=== PATIENT | female | born 1975 | race Caucasian/White ===

== ENCOUNTER → 2016-04-17 | Outpatient (REF) | payer OTHER ==
[~2016-04-17] MED LIST: /BUSP5TA OR; /HALO5TAB OR; /MOXI40TA; /QUET25TA OR; ACET500C; ACET50TA PO; ACET65TA; ALLE25CA; ALLE25CA OR; ALLEGRA180 PO; ATARAX OR; CLEO300C; CLIN1CAP5 PO; DARV100T; DEPA500T2 OR; DOVONEX TOP; EFFE150C OR; EFFE150C PO; EFFE75CA75 OR; EFFEXOR PO; EFFEXOR XR PO; FLAG500T OR; FLAGYL PO; GABA-283 PO; HYDR50TA8 OR; HYDR50TA8 PO; IBUP200C PO; IBUP600T; KETO-28; KLON0.5T; KLON1TAB; LAMI1TAB7 PO; LORA1TAB OR; LYRI200C OR; LYRI200C PO; LYRI300C OR; METH10CO PO; NEUR100C OR; NEUR300C OR; NEUR400C OR; NEUR600T; NEUR600T OR; NEUR800T OR; NEUR800T PO; NICO21DI4 TD; NICO21DI5 TD; NICO4GUM31 PO; NICO7DIS4 TD; PAXI20TA; PERC5TAB8; PERC7.5T8; PNV-CAP5 PO; PREG100CA OR; PREG100CA PO; PREG50CA PO; PRISTIQ; REME45TA OR; REME45TA PO; SENO8.6T5 OR; SKEL800T5 OR; SOMA250T OR; THERGRAN PO; TIZA4CAP3 PO; TRAZ100T OR; TRAZ100T4 PO; TRAZ150T; TRAZ150T OR; TRAZ150T PO; TRAZ300T2 OR; TRAZ50TA OR; TRAZODONE; Theragran PO; VENL100T OR; VENL100T PO; VENL75TA2 OR; WELLTAB40 PO; XANA0.5T; XANA1TAB2; XANA1TAB2 OR; XANA2TAB2; XANA2TAB2 OR; ZANTTAB PO; ZITH250T; ZOLO100T; ZOLOFT; ZYPR5TAB
[2016-04-17 12:14] LABS: BASO % 0.4 % (0.0-1.0); EOS # 0.1 K/mm3 (0.0-0.50); EOS % 1.4 % (0.0-3.0); LARGE UNSTAINED CELL # 0.2 K/mm3 (0.0-0.4); LARGE UNSTAINED CELL % 2.3 % (0.0-4.0); LYMPH % 24.6 % (24.0-44.0); MEAN CORPUSCULAR HEMOGLOBIN 28.9 pg (27.0-33.0); MEAN CORPUSCULAR HGB CONC 33.3 g/dl (32.0-36.5); MEAN CORPUSCULAR VOLUME 86.7 fl (80.0-96.0); MONO # 0.3 K/mm3 (0.0-0.8); MONO % 4.2 % (0.0-5.0); NEUTROPHILS # 5.4 K/mm3 (1.8-7.7); NEUTROPHILS % 67.1 % (36.0-66.0); PLATELET COUNT, AUTOMATED 202 k/mm3 (150-450); RED CELL DISTRIBUTION WIDTH 13.3 % (11.5-14.5); WHITE BLOOD COUNT 8.1 K/mm3 (4.0-10.0)
[2016-04-17 12:46] LABS: ALBUMIN 3.6 GM/DL (3.2-5.2); ALBUMIN/GLOBULIN RATIO 1.06 (1.00-1.93); BILIRUBIN,DIRECT 0.1 MG/DL (0.0-0.2); BILIRUBIN,TOTAL 0.4 MG/DL (0.2-1.0)
== END ==
LOC: M SFHCPLAZ 10:29
PROVIDERS: ATTEND Internal Medicine Infectious Disease
DX: Z30.011 Encounter for initial prescription of contraceptive pills (principal); Z11.3 Encounter for screening for infections with a predominantly sexual mode of transmission; B18.2 Chronic viral hepatitis C

== ENCOUNTER 2016-04-27 20:49 | Emergency (ER) | payer OTHER ==
--- NOTE | 2016-04-27 22:12 | EDDOCDS ---
Nurse's Notes [facility] Name: Kylie Cunningham Age: 41 yrs Sex: Female : 1975 Arrival Date: 04/27/2016 Time: 20:49 Bed TR8 Private MD: THOMAS GARCIA Diagnosis: Acute serous otitis media, left ear Presentation: 04/27 20:52 Presenting complaint: Patient states: Reports of stuffy nose x 3 days. L ear plugged an rs3 hour ago. Adult Sepsis Screening: The patient does not have new or worsening altered mentation. Patient's respiratory rate is less than 22. Systolic blood pressure is greater than 100. Patient has a qSOFA score of 0- Negative Sepsis Screen. Suicide/Homicide risk assessment- the patient denies having any suicidal and/or homicidal ideations and does not present with any other emotional, behavioral or mental health complaints. Status: Patient is not a customer service sales consultant or dependent. Transition of care: patient was not received from another setting of care. 20:52 Acuity: KAHLIL Level 5 rs3 20:52 Method Of Arrival: Walkin/Carried/Asstd rs3 Triage Assessment: 20:56 General: Appears in no apparent distress. Pain: Location: lumbar area. HIV screening NA rs3 for this visit Offered previously. EENT: Reports. Historical: - Allergies: PENICILLINS (Anaphylaxis, Hives); SULFA (SULFONAMIDES) (Anaphylaxis, Hives); - Home Meds: 1. Lamictal 150 mg oral tab 1 tab once daily 2. Wellbutrin 300 Oral 1 tab daily XR variety 3. pregabalin 300 mg oral cap three times a day 4. gabapentin 800 mg oral tab four times a day 5. tizanidine 4 mg oral cap 1 cap 3 times per day 6. Suboxone 8-2 mg SL film 1 film once daily 7. clonidine HCl 0.1 mg Oral tab 1 tab 3 times per day - PMHx: Anxiety; Arthritis; Bipolar disorder; Depression; Fibromyalgia; insomnia; Myofascial Pain syndrome right shoulder; Panic Disorder; PTSD; - PSHx: cyst removed from throat; - Social history: Smoking status: Patient uses tobacco products, heavy tobacco smoker. No barriers to communication noted, The patient speaks fluent Kazakh. - Family history: No immediate family members are acutely ill. - : The pt / caregiver states he / she is not on anticoagulants. Home medication list is obtained from the patient. - Exposure Risk Screening:: None identified. Screenin:08 Screening information is obtained from the patient. Fall risk: No risks identified. kmg1 Assistance ADL's: requires no assistance with activities of daily living. Abuse/DV Screen: The patient / caregiver reports he/she is: not in a situation that causes fear, pain or injury. Nutritional screening: No deficits noted. Advance Directives: There is no active DNR order. home support is adequate. Assessment: 22:08 General: Appears in no apparent distress, comfortable, Behavior is appropriate for age, kmg1 cooperative. Pain: Location: left eye Quality of pain is described as aching, pressure. EENT: Reports pain in left ear. Vital Signs: 20:51 BP 114 / 68; Pulse 83; Resp 18; Temp 99.0; Pulse Ox 100% ; Weight 81.65 kg; Height 5 elp ft. 3 in. (160.02 cm); 20:51 Body Mass Index 31.89 (81.65 kg, 160.02 cm) el Vitals: 20:51 Log In Time: April 27, 2016 at 20:49. elp ED Course: 20:50 Patient visited by Johana Hernandez PCA. elp 20:50 THOMAS GARCIA is Private Physician. elp 20:50 Patient moved to Waiting elp 20:51 Patient visited by Johana Hernandez PCA. elp 20:51 Patient moved to Pre RCE elp 20:54 Triage Initiated rs3 21:31 Patient moved to Triage 2 ct3 21:40 [facility] btw 21:40 Nazario Reagan DO is Attending Physician. btw 21:40 Patient visited by William Heard PA. btw 21:48 THOMAS GARCIA is Referral Physician. btw 22:05 Patient moved to TR8 ct3 22:08 The patient / caregiver is instructed regarding the plan of care and ED course. kmg1 22:08 No IV's were initiated during this patient's visit. No procedures done that require kmg1 assistance. Order Results: There are currently no results for this order. Outcome: 21:49 Discharge ordered by Provider. btw 22:08 Discharge Assessment: Patient awake, alert and oriented x 3. No cognitive and/or kmg1 functional deficits noted. Patient verbalized understanding of disposition instructions. Patient awake and alert. patient administered narcotics - no. The following High Risk Discharge criteria are identified: None. Discharged to home ambulatory. Condition: stable. Discharge instructions given to patient, Instructed on discharge instructions, follow up and referral plans. Demonstrated understanding of instructions, Pt was receptive of discharge instructions/ teaching. No special radiology studies were completed. Property sent home with patient. 22:[address] [place] [facility] [place]: Cathleen Crenshaw RN RN kmg1 Narcisa Medrano RN RN rs3 William Heard PA PA btw Krupa Guerra, KEYSEATING MACHINE SET UP OPERATOR KEYSEATING MACHINE SET UP OPERATOR ct3 Johana Hernandez, KEYSEATING MACHINE SET UP OPERATOR KEYSEATING MACHINE SET UP OPERATOR elp MTDD
--- NOTE | 2016-04-27 22:12 | EDDOCDS ---
Physician Documentation [facility] Name: Kylie Cunningham Age: 41 yrs Sex: Female : 1975 Arrival Date: 04/27/2016 Time: 20:49 Bed TR8 Private MD: THOMAS GARCIA Disposition: 04/27/16 21:49 Discharged to Home/Self Care. Impression: Acute serous otitis media, left ear. - Condition is Stable. - Discharge Instructions: Serous Otitis Media. - Medication Reconciliation, Local Pharmacy Hours form. - Follow up: THOMAS GARCIA; When: Call to arrange an appointment; Reason: Further diagnostic work-up, Recheck today's complaints, Continuance of care. - Problem is new. - Symptoms are unchanged. Historical: - Allergies: PENICILLINS (Anaphylaxis, Hives); SULFA (SULFONAMIDES) (Anaphylaxis, Hives); - Home Meds: 1. Lamictal 150 mg oral tab 1 tab once daily 2. Wellbutrin 300 Oral 1 tab daily XR variety 3. pregabalin 300 mg oral cap three times a day 4. gabapentin 800 mg oral tab four times a day 5. tizanidine 4 mg oral cap 1 cap 3 times per day 6. Suboxone 8-2 mg SL film 1 film once daily 7. clonidine HCl 0.1 mg Oral tab 1 tab 3 times per day - PMHx: Anxiety; Arthritis; Bipolar disorder; Depression; Fibromyalgia; insomnia; Myofascial Pain syndrome right shoulder; Panic Disorder; PTSD; - PSHx: cyst removed from throat; - Social history: Smoking status: Patient uses tobacco products, heavy tobacco smoker. No barriers to communication noted, The patient speaks fluent Fijian. - Family history: No immediate family members are acutely ill. - : The pt / caregiver states he / she is not on anticoagulants. Home medication list is obtained from the patient. - Exposure Risk Screening:: None identified. Vital Signs: 04/27 20:51 BP 114 / 68; Pulse 83; Resp 18; Temp 99.0; Pulse Ox 100% ; Weight 81.65 kg / 180.01 elp lbs; Height 5 ft. 3 in. (160.02 cm); 20:51 Body Mass Index 31.89 (81.65 kg, 160.02 cm) elp Signatures: Cathleen Crenshaw, RN RN kmg1 Narcisa Medrano,RN RN rs3 William Heard, JAVON PA btw MTDD
--- NOTE | 2016-04-29 23:12 | EDDOCDS ---
Physician Documentation [facility] Name: Kylie Cunningham Age: 41 yrs Sex: Female : 1975 Arrival Date: 04/27/2016 Time: 20:49 Bed TR8 Private MD: THOMAS GARCIA Disposition: 04/27/16 21:49 Discharged to Home/Self Care. Impression: Acute serous otitis media, left ear. - Condition is Stable. - Discharge Instructions: Serous Otitis Media. - Medication Reconciliation, Local Pharmacy Hours form. - Follow up: THOMAS GARCIA; When: Call to arrange an appointment; Reason: Further diagnostic work-up, Recheck today's complaints, Continuance of care. - Problem is new. - Symptoms are unchanged. Historical: - Allergies: PENICILLINS (Anaphylaxis, Hives); SULFA (SULFONAMIDES) (Anaphylaxis, Hives); - Home Meds: 1. Lamictal 150 mg oral tab 1 tab once daily 2. Wellbutrin 300 Oral 1 tab daily XR variety 3. pregabalin 300 mg oral cap three times a day 4. gabapentin 800 mg oral tab four times a day 5. tizanidine 4 mg oral cap 1 cap 3 times per day 6. Suboxone 8-2 mg SL film 1 film once daily 7. clonidine HCl 0.1 mg Oral tab 1 tab 3 times per day - PMHx: Anxiety; Arthritis; Bipolar disorder; Depression; Fibromyalgia; insomnia; Myofascial Pain syndrome right shoulder; Panic Disorder; PTSD; - PSHx: cyst removed from throat; - Social history: Smoking status: Patient uses tobacco products, heavy tobacco smoker. No barriers to communication noted, The patient speaks fluent Portuguese. - Family history: No immediate family members are acutely ill. - : The pt / caregiver states he / she is not on anticoagulants. Home medication list is obtained from the patient. - Exposure Risk Screening:: None identified. Vital Signs: 04/27 20:51 BP 114 / 68; Pulse 83; Resp 18; Temp 99.0; Pulse Ox 100% ; Weight 81.65 kg / 180.01 elp lbs; Height 5 ft. 3 in. (160.02 cm); 20:51 Body Mass Index 31.89 (81.65 kg, 160.02 cm) elp MDM: 04/28 20:53 T-Sheet-- Draft Copy was scanned into [email or web address] and attached to record. klr Signatures: Cathleen Crenshaw RN RN kmg1 Narcisa Medrano RN RN rs3 William Heard PA PA btw Redder, Kathie klr The chart was reviewed and I authenticate all verbal orders and agree with the evaluation and treatment provided.Attachments: 20:53 T-Sheet-- Draft Copy klr Chart Complete MTDD
--- NOTE | 2016-04-29 23:12 | EDDOCDS ---
Nurse's Notes [facility] Name: Kylie Cunningham Age: 41 yrs Sex: Female : 1975 Arrival Date: 04/27/2016 Time: 20:49 Bed TR8 Private MD: THOMAS GARCIA Diagnosis: Acute serous otitis media, left ear Presentation: 04/27 20:52 Presenting complaint: Patient states: Reports of stuffy nose x 3 days. L ear plugged an rs3 hour ago. Adult Sepsis Screening: The patient does not have new or worsening altered mentation. Patient's respiratory rate is less than 22. Systolic blood pressure is greater than 100. Patient has a qSOFA score of 0- Negative Sepsis Screen. Suicide/Homicide risk assessment- the patient denies having any suicidal and/or homicidal ideations and does not present with any other emotional, behavioral or mental health complaints. Status: Patient is not a financial services technician or dependent. Transition of care: patient was not received from another setting of care. 20:52 Acuity: KAHLIL Level 5 rs3 20:52 Method Of Arrival: Walkin/Carried/Asstd rs3 Triage Assessment: 20:56 General: Appears in no apparent distress. Pain: Location: lumbar area. HIV screening NA rs3 for this visit Offered previously. EENT: Reports. Historical: - Allergies: PENICILLINS (Anaphylaxis, Hives); SULFA (SULFONAMIDES) (Anaphylaxis, Hives); - Home Meds: 1. Lamictal 150 mg oral tab 1 tab once daily 2. Wellbutrin 300 Oral 1 tab daily XR variety 3. pregabalin 300 mg oral cap three times a day 4. gabapentin 800 mg oral tab four times a day 5. tizanidine 4 mg oral cap 1 cap 3 times per day 6. Suboxone 8-2 mg SL film 1 film once daily 7. clonidine HCl 0.1 mg Oral tab 1 tab 3 times per day - PMHx: Anxiety; Arthritis; Bipolar disorder; Depression; Fibromyalgia; insomnia; Myofascial Pain syndrome right shoulder; Panic Disorder; PTSD; - PSHx: cyst removed from throat; - Social history: Smoking status: Patient uses tobacco products, heavy tobacco smoker. No barriers to communication noted, The patient speaks fluent Zimbabwean. - Family history: No immediate family members are acutely ill. - : The pt / caregiver states he / she is not on anticoagulants. Home medication list is obtained from the patient. - Exposure Risk Screening:: None identified. Screenin:08 Screening information is obtained from the patient. Fall risk: No risks identified. kmg1 Assistance ADL's: requires no assistance with activities of daily living. Abuse/DV Screen: The patient / caregiver reports he/she is: not in a situation that causes fear, pain or injury. Nutritional screening: No deficits noted. Advance Directives: There is no active DNR order. home support is adequate. Assessment: 22:08 General: Appears in no apparent distress, comfortable, Behavior is appropriate for age, kmg1 cooperative. Pain: Location: left eye Quality of pain is described as aching, pressure. EENT: Reports pain in left ear. Vital Signs: 20:51 BP 114 / 68; Pulse 83; Resp 18; Temp 99.0; Pulse Ox 100% ; Weight 81.65 kg; Height 5 elp ft. 3 in. (160.02 cm); 20:51 Body Mass Index 31.89 (81.65 kg, 160.02 cm) el Vitals: 20:51 Log In Time: April 27, 2016 at 20:49. elp ED Course: 20:50 Patient visited by Johana Hernandez PCA. elp 20:50 THOMAS GARCIA is Private Physician. elp 20:50 Patient moved to Waiting elp 20:51 Patient visited by Johana Hernandez PCA. elp 20:51 Patient moved to Pre RCE elp 20:54 Triage Initiated rs3 21:31 Patient moved to Triage 2 ct3 21:40 [facility]ad [facility] btw 21:40 Nazario Reagan DO is Attending Physician. btw 21:40 Patient visited by William Heard PA. btw 21:48 THOMAS GARCIA is Referral Physician. btw 22:05 Patient moved to TR8 ct3 22:08 The patient / caregiver is instructed regarding the plan of care and ED course. kmg1 22:08 No IV's were initiated during this patient's visit. No procedures done that require kmg1 assistance. 04/28 20:53 T-Sheet-- Draft Copy was scanned into [employer] and attached to record. klr Order Results: There are currently no results for this order. Outcome: 04/27 21:49 Discharge ordered by Provider. btw 22:08 Discharge Assessment: Patient awake, alert and oriented x 3. No cognitive and/or kmg1 functional deficits noted. Patient verbalized understanding of disposition instructions. Patient awake and alert. patient administered narcotics - no. The following High Risk Discharge criteria are identified: None. Discharged to home ambulatory. Condition: stable. Discharge instructions given to patient, Instructed on discharge instructions, follow up and referral plans. Demonstrated understanding of instructions, Pt was receptive of discharge instructions/ teaching. No special radiology studies were completed. Property sent home with patient. 22:11 Patient [place] the [place]. [facility] [place] Signatures: Cathleen Crenshaw, RN RN kmg1 Narcisa Medrano,RN RN rs3 William Heard, JAVON PA btw Krupa Guerra, CAREER SERVICES REPRESENTATIVE CAREER SERVICES REPRESENTATIVE ct3 Johana Hernandez, CAREER SERVICES REPRESENTATIVE CAREER SERVICES REPRESENTATIVE elp Galilea Douglas Chart Complete MTDAbelardo
--- NOTE | 2016-04-29 23:12 | EDDOCDS ---
Physician Documentation [facility] Name: Kylie Cunningham Age: 41 yrs Sex: Female : 1975 Arrival Date: 04/27/2016 Time: 20:49 Bed TR8 Private MD: THOMAS GARCIA Disposition: 04/27/16 21:49 Discharged to Home/Self Care. Impression: Acute serous otitis media, left ear. - Condition is Stable. - Discharge Instructions: Serous Otitis Media. - Medication Reconciliation, Local Pharmacy Hours form. - Follow up: THOMAS GARCIA; When: Call to arrange an appointment; Reason: Further diagnostic work-up, Recheck today's complaints, Continuance of care. - Problem is new. - Symptoms are unchanged. Historical: - Allergies: PENICILLINS (Anaphylaxis, Hives); SULFA (SULFONAMIDES) (Anaphylaxis, Hives); - Home Meds: 1. Lamictal 150 mg oral tab 1 tab once daily 2. Wellbutrin 300 Oral 1 tab daily XR variety 3. pregabalin 300 mg oral cap three times a day 4. gabapentin 800 mg oral tab four times a day 5. tizanidine 4 mg oral cap 1 cap 3 times per day 6. Suboxone 8-2 mg SL film 1 film once daily 7. clonidine HCl 0.1 mg Oral tab 1 tab 3 times per day - PMHx: Anxiety; Arthritis; Bipolar disorder; Depression; Fibromyalgia; insomnia; Myofascial Pain syndrome right shoulder; Panic Disorder; PTSD; - PSHx: cyst removed from throat; - Social history: Smoking status: Patient uses tobacco products, heavy tobacco smoker. No barriers to communication noted, The patient speaks fluent Cook Islander. - Family history: No immediate family members are acutely ill. - : The pt / caregiver states he / she is not on anticoagulants. Home medication list is obtained from the patient. - Exposure Risk Screening:: None identified. Vital Signs: 04/27 20:51 BP 114 / 68; Pulse 83; Resp 18; Temp 99.0; Pulse Ox 100% ; Weight 81.65 kg / 180.01 elp lbs; Height 5 ft. 3 in. (160.02 cm); 20:51 Body Mass Index 31.89 (81.65 kg, 160.02 cm) elp MDM: 04/28 20:53 T-Sheet-- Draft Copy was scanned into [employer] and attached to record. klr Signatures: Cathleen Crenshaw RN RN kmg1 Narcisa Medrano RN RN rs3 William Heard PA PA btw Redder, Kathie klr The chart was reviewed and I authenticate all verbal orders and agree with the evaluation and treatment provided.Attachments: 20:53 T-Sheet-- Draft Copy klr Chart Complete MTDD
== END 2016-04-27 22:11 | disposition home or self-care (01) ==
LOC: M ED 20:49
DX: H66.002 Acute suppurative otitis media without spontaneous rupture of ear drum, left ear (principal); F41.9 Anxiety disorder, unspecified; M19.90 Unspecified osteoarthritis, unspecified site; F31.9 Bipolar disorder, unspecified; M79.7 Fibromyalgia; G47.00 Insomnia, unspecified; F43.10 Post-traumatic stress disorder, unspecified; F17.200 Nicotine dependence, unspecified, uncomplicated; Z79.891 Long term (current) use of opiate analgesic; Z79.899 Other long term (current) drug therapy; Z88.0 Allergy status to penicillin; Z88.2 Allergy status to sulfonamides

== ENCOUNTER → 2016-05-06 | Outpatient (REF) | payer OTHER ==
[2016-05-06 17:52] LABS: AMPHETAMINES URINE REFLEX NEGATIVE (NEGATIVE); BARBITURATES URINE REFLEX NEGATIVE (NEGATIVE); BENZODIAZEPINES URINE REFLEX NEGATIVE (NEGATIVE); COCAINE METABOLITE URINE REFLE NEGATIVE (NEGATIVE); CONTROL LINE INT CTR LINE PRESENT; METHADONE URINE REFLEX NEGATIVE (NEGATIVE); OPIATES URINE REFLEX NEGATIVE (NEGATIVE); TRICYCLIC ANTIDEPRESS UR REFL NEGATIVE (NEGATIVE)
== END ==
LOC: M SFHCPLAZ 13:32
PROVIDERS: ATTEND Internal Medicine Infectious Disease
DX: F11.21 Opioid dependence, in remission (principal)

== ENCOUNTER → 2016-05-10 | Outpatient (REF) | payer OTHER, MEDICAID | LOC: M SFHCWAGY 13:20 | PROVIDERS: ATTEND Family Medicine | DX: Z11.3 Encounter for screening for infections with a predominantly sexual mode of transmission (principal) ==

== ENCOUNTER 2016-06-04 01:59 | Emergency (ER) | payer MEDICAID, OTHER ==
[~2016-06-04] VITALS: Ht 160 cm; Wt 79.4 kg
[2016-06-04 02:30] VITALS: BP 126/75
[2016-06-04] MEDS ORDERED: SUBO12MI SL (02:37)
[2016-06-04] MEDS ORDERED: NAPROXEN 250 MG TAB PO ONE (02:45)
[2016-06-04] MEDS ORDERED: NAPR500T PO (02:50)
== END 2016-06-04 03:07 | disposition home or self-care (01) ==
LOC: M ED 02:54
DX: S90.01XA Contusion of right ankle, initial encounter (principal); F17.210 Nicotine dependence, cigarettes, uncomplicated; W20.8XXA Other cause of strike by thrown, projected or falling object, initial encounter; Y92.89 Other specified places as the place of occurrence of the external cause; Y93.89 Activity, other specified; Y99.9 Unspecified external cause status

== ENCOUNTER → 2016-07-01 | Outpatient (REF) | payer OTHER ==
[~2016-07-01] MED LIST changes: +NAPR500T PO; +SUBO12MI SL
[2016-07-01 20:10] LABS: ALBUMIN 4.1 GM/DL (3.2-5.2); ALBUMIN/GLOBULIN RATIO 1.28 (1.00-1.93); ALKALINE PHOSPHATASE 85 U/L (45-117); ALT/SGPT 16 U/L (12-78); AST/SGOT 14 U/L (15-37); BILIRUBIN,DIRECT < 0.1 MG/DL (0.0-0.2); BILIRUBIN,TOTAL 0.2 MG/DL (0.2-1.0); TOTAL PROTEIN 7.3 GM/DL (6.4-8.2)
[2016-07-04 14:14] LABS: HEPATITIS C QUANTITATION HCV Not Detected IU/mL (.)
== END ==
LOC: M SFHCPLAZ 14:25
PROVIDERS: ATTEND Internal Medicine Infectious Disease
DX: M79.7 Fibromyalgia (principal); F41.8 Other specified anxiety disorders; F11.21 Opioid dependence, in remission; G47.00 Insomnia, unspecified; Z72.0 Tobacco use

== ENCOUNTER → 2016-07-16 | Outpatient (REF) | payer OTHER, MEDICAID | LOC: M SFHCPLAZ 15:21 | PROVIDERS: ATTEND Nurse Practitioner Family | DX: N30.01 Acute cystitis with hematuria (principal) ==

== ENCOUNTER → 2016-09-27 | Outpatient (REF) | payer OTHER ==
[~2016-09-27] MED LIST changes: +CLIN150C14 PO; -CLIN1CAP5 PO; +CLON0.3T PO; +CLON0.5T PO; +IBUP1TAB6 PO; -IBUP200C PO; +IBUP200C10 PO; +LAMO150T PO; +LYRI300C PO; +NICO10SP; +NORE0.353 PO; +PATIENT COMMENT; +SUBO8MIS SL; +TRAZ-136 PO; -TRAZ100T4 PO; +ZANA4TAB PO
== END ==
LOC: M SFHCPLAZ 13:55
PROVIDERS: ATTEND Nurse Practitioner Family
DX: R10.12 Left upper quadrant pain (principal); Z53.9 Procedure and treatment not carried out, unspecified reason

== ENCOUNTER 2016-11-21 20:49 | Observation (INO) | payer OTHER, MEDICAID ==
[~2016-11-21] VITALS: Ht 160 cm; Wt 80.9 kg
[~2016-11-21 20:49] MED LIST changes: -CLON0.3T PO; -CLON0.5T PO; -IBUP1TAB6 PO; -LAMO150T PO; -LYRI300C PO; -NICO10SP; -NORE0.353 PO; -PATIENT COMMENT; -SUBO8MIS SL; -ZANA4TAB PO
[2016-11-21] MEDS ORDERED: NS 1,000 ML IV ONE (23:30)
[2016-11-22 00:15] LABS: ABG BASE EXCESS -0.7 (-2.0-2.0); ABG HCO3 24.3 MEQ/L (22.0-26.0); ABG PARTIAL PRESSURE CO2 41.4 mmHg (35.0-45.0); ABG PARTIAL PRESSURE O2 95.2 mmHg (75.0-100.0); ABG STANDARD HCO3 23.9 MEQ/L (22.0-26.0); ABG TOTAL CO2 25.5 MEQ/L (22.0-29.0); ABG pH (ARTERIAL) 7.386 UNITS (7.350-7.450)
--- NOTE | 2016-11-22 00:30 | REPUSA ---
HISTORY: Trauma. COMPARISON: Not provided. TECHNIQUE: Multiple thin section helically-acquired axially-displayed and helically acquired coronall y displayed computed tomographic images of the face are obtained from the mandible through the fronta l sinuses, with images obtained at soft tissue and bone window. 2D reformatted images were performed. FINDINGS: Left preseptal soft tissue edema. Normal bony mineralization. No fractures. Normal orbits. Normal, clear paranasal sinuses. Normal oral and nasal cavities. Normal infratemporal fossa and deep parapharyngeal spaces with normal muscles of mastication. Normal parotid and submandibular glands. IMPRESSION: Left preseptal soft tissue edema. Thank you for your kind referral of this patient
[2016-11-22 00:34] LABS: METHADONE URINE NEGATIVE (NEGATIVE)
[2016-11-22 01:01] LABS: BASO % 0.4 % (0.0-1.0); EOS # 0.3 K/mm3 (0.0-0.50); EOS % 4.4 % (0.0-3.0); LARGE UNSTAINED CELL # 0.2 K/mm3 (0.0-0.4); LARGE UNSTAINED CELL % 2.3 % (0.0-4.0); LYMPH # 3.3 K/mm3 (1.5-4.5); LYMPH % 41.1 % (24.0-44.0); MEAN CORPUSCULAR HEMOGLOBIN 28.6 pg (27.0-33.0); MEAN CORPUSCULAR HGB CONC 33.1 g/dl (32.0-36.5); MEAN CORPUSCULAR VOLUME 86.5 fl (80.0-96.0); MONO # 0.3 K/mm3 (0.0-0.8); MONO % 4.1 % (0.0-5.0); NEUTROPHILS # 3.7 K/mm3 (1.8-7.7); NEUTROPHILS % 47.8 % (36.0-66.0); PLATELET COUNT, AUTOMATED 258 k/mm3 (150-450); WHITE BLOOD COUNT 7.6 K/mm3 (4.0-10.0)
[2016-11-22 01:28] LABS: ALBUMIN 3.9 GM/DL (3.2-5.2); ALBUMIN/GLOBULIN RATIO 1.18 (1.00-1.93); ALKALINE PHOSPHATASE 60 U/L (45-117); ALT/SGPT 38 U/L (12-78); ANION GAP 6 MEQ/L (8-16); AST/SGOT 33 U/L (15-37); BILIRUBIN,DIRECT < 0.1 MG/DL (0.0-0.2); BILIRUBIN,TOTAL 0.4 MG/DL (0.2-1.0); BLOOD UREA NITROGEN 4 MG/DL (7-18); CALCIUM LEVEL 8.5 MG/DL (8.5-10.1); CARBON DIOXIDE LEVEL 29 MEQ/L (21-32); CHLORIDE LEVEL 107 MEQ/L (98-107); CREATININE FOR GFR 0.79 MG/DL (0.55-1.02); GLOMERULAR FILTRATION RATE > 60.0 (>60); GLUCOSE, FASTING 86 MG/DL (70-105); POTASSIUM SERUM 3.6 MEQ/L (3.5-5.1); SODIUM LEVEL 142 MEQ/L (136-145); TOTAL PROTEIN 7.2 GM/DL (6.4-8.2)
[2016-11-22] MEDS ORDERED: NALOXONE INJ 2 MG/2 ML SYRINGE (J2310) IV STA (01:55)
[2016-11-22] MEDS ORDERED: NALOXONE INJ 2 MG/2 ML SYRINGE (J2310) IM STA (01:55)
[2016-11-22] MEDS ORDERED: LAMO150T PO (03:48)
[2016-11-22] MEDS ORDERED: SUBO8MIS SL ×2 (03:48→15:11)
[2016-11-22] MEDS ORDERED: IBUP1TAB6 PO (03:48)
[2016-11-22] MEDS ORDERED: ZANA4TAB PO (03:48)
[2016-11-22] MEDS ORDERED: CLON0.3T PO (03:48)
[2016-11-22] MEDS ORDERED: LYRI300C PO ×2 (03:48→15:11)
[2016-11-22] MEDS ORDERED: PATIENT COMMENT (03:50)
[2016-11-22] MEDS ORDERED: AMMONIA AROMATIC INHALANT (FLOOR STOCK) As Ordered ONE (04:20)
[2016-11-22] MEDS ORDERED: NS 1,000 ML IV SCH (05:05)
[2016-11-22] MEDS: HEPARIN SOD (PORCINE) 5000 UNITS/ML VIAL SC SCH ×2 (06:00→14:00)
[2016-11-22 06:06] VITALS: BP 106/59
[2016-11-22 07:14] LABS: BASO % 0.5 % (0.0-1.0); EOS # 0.2 K/mm3 (0.0-0.50); LARGE UNSTAINED CELL # 0.1 K/mm3 (0.0-0.4); LARGE UNSTAINED CELL % 1.5 % (0.0-4.0); LYMPH # 1.9 K/mm3 (1.5-4.5); LYMPH % 21.9 % (24.0-44.0); MEAN CORPUSCULAR HEMOGLOBIN 28.6 pg (27.0-33.0); MEAN CORPUSCULAR HGB CONC 33.3 g/dl (32.0-36.5); MONO # 0.3 K/mm3 (0.0-0.8); MONO % 4.2 % (0.0-5.0); NEUTROPHILS # 5.7 K/mm3 (1.8-7.7); NEUTROPHILS % 68.9 % (36.0-66.0); PLATELET COUNT, AUTOMATED 288 k/mm3 (150-450); RED CELL DISTRIBUTION WIDTH 13.3 % (11.5-14.5); WHITE BLOOD COUNT 8.2 K/mm3 (4.0-10.0)
[2016-11-22 07:44] VITALS: BP 95/59
[2016-11-22 07:45] VITALS: BP 146/62
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
[2016-11-22 07:50] LABS: ALBUMIN 3.3 GM/DL (3.2-5.2); ALBUMIN/GLOBULIN RATIO 1.14 (1.00-1.93); ALKALINE PHOSPHATASE 54 U/L (45-117); ALT/SGPT 30 U/L (12-78); ANION GAP 8 MEQ/L (8-16); AST/SGOT 19 U/L (15-37); BILIRUBIN,TOTAL 0.3 MG/DL (0.2-1.0); BLOOD UREA NITROGEN 3 MG/DL (7-18); CALCIUM LEVEL 8.1 MG/DL (8.5-10.1); CARBON DIOXIDE LEVEL 27 MEQ/L (21-32); CHLORIDE LEVEL 112 MEQ/L (98-107); CREATININE FOR GFR 0.66 MG/DL (0.55-1.02); GLOMERULAR FILTRATION RATE > 60.0 (>60); GLUCOSE, FASTING 95 MG/DL (70-105); MAGNESIUM LEVEL 2.2 MG/DL (1.8-2.4); POTASSIUM SERUM 3.9 MEQ/L (3.5-5.1); SODIUM LEVEL 147 MEQ/L (136-145); TOTAL PROTEIN 6.2 GM/DL (6.4-8.2)
[2016-11-22] MEDS ORDERED: NICOTINE 21MG/24HR 1 EA TRANSDERMAL TD SCH (09:00)
--- NOTE | 2016-11-22 09:24 | IPNPDOC ---
Subjective Date Seen The patient was seen on 11/22/16. Subjective Chief Complaint/HPI The patient is a 41-year-old female admitted with a reason for visit of Encephalopathy Acute. Events since last encounter patient is sleeping. snoring. No apnea. Constitutional: Denies: Chills, Fever Pulmonary: Denies: Dyspnea Gastrointestinal: Denies: Nausea, Vomiting, Abdominal Pain Objective Physical Examination General Exam: Positive: Other (sleeping, snoring, No apnea or respiratory distress. Mumbled and raised arms over head with firm tactile stimuli and loud verbal stimuli. she tried to open her eyes when I asked her to, but only opened them slightly and then fell back to sleep.) Eye Exam: Positive: Other Eye Symptoms (scleral edema of the left eye) Chest Exam: Positive: Clear to auscultation, Normal air movement Heart Exam: Positive: Rate Normal, Regular Rhythm, Normal S1, Normal S2, Negative: Murmurs, Rubs Telemetry: Positive: Bradycardia Abdomen Exam: Positive: Soft, Negative: Tenderness Extremity Exam: Negative: Edema, Swelling Skin Exam: Positive: Other skin issue (circular ecchymosis noted on the left arm proximal to the antecubital fossa) Neuro Exam: Positive: Other (unresponsive due to clinical condition) Psych Exam: Positive: Other (unresponsive) Assessment /Plan Problems (1) Encephalopathy acute Status: Acute Problem Text: Likely Suboxone OD considering response to Narcan Also recently prescribed Klonopin and taking multiple other sedating meds that are contributing to her unresponsive state Continue to monitor on telemetry continue IVF No symptomatic bradycardia thus far - monitor this per [place] control Monitor serial CPKs Patient aroused with Narcan, but sleeping now - no signs of apnea or resp distress currently, therefore will hold off on further Narcan continue sitter Plan for Psych eval and [facility] admission for presumed intentional OD once mental status normalizes (2) Facial trauma Status: Acute Problem Text: left eye with periorbital eccymosis and swelling - x-rays and Ct scan without facial or skull fracture or Subdural hematoma. (3) Narcotic dependence Status: Chronic (4) H/O intravenous drug use in remission Status: Chronic (5) Asthma Status: Chronic Response to Treatment: Stable (6) Fibromyalgia (7) Myofascial pain dysfunction syndrome (8) Hepatitis C (9) Bipolar 1 disorder, depressed (10) Panic anxiety syndrome Plan/VTE VTE Prophylaxis Ordered?: Yes (TEDs, sequentials, knee-high compression; heparin 5000 units SC every 8 hours) Plan IVF: Initiate (60 mLs per hour) Diet: Make NPO Activity: Bedrest Diagnostics: Check Labs, Repeat Labs in AM Anticipated Discharge: Home VS, I&O, 24H, Fishbone Vital Signs/I&O Vital Signs Date Time Temp Pulse Resp B/P (MAP) Pulse Ox O2 Delivery O2 Flow Rate FiO2 11/22/16 06:06 97.9 70 16 106/59 (75) 94 Room Air Laboratory Data 24H LABS Laboratory Tests 2 11/21/16 23:49: Bedside Glucose (Misc Panel) 86 11/22/16 00:06: Blood Gas Bicarbonate Standard 23.9, Arterial Blood pH 7.386, Arterial Blood Partial Pressure CO2 41.4, Arterial Blood Partial Pressure O2 95.2, Arterial Blood Total CO2 25.5, Arterial Blood HCO3 24.3, Arterial Blood Base Excess -0.7 , Arterial Blood Oxygen Saturation 97.0, Urine Amphetamines Screen NEGATIVE, Urine Benzodiazepines Screen NEGATIVE, Urine Opiates Screen NEGATIVE, Urine Methadone Screen NEGATIVE, Urine Barbiturates Screen NEGATIVE, Urine Phencyclidine Screen NEGATIVE, Urine Cocaine Metabolite Screen NEGATIVE, Urine Cannabinoids Screen NEGATIVE 11/22/16 00:50: White Blood Count 7.6, Red Blood Count 4.75, Hemoglobin 13.6, Hematocrit 41.0, Mean Corpuscular Volume 86.5, Mean Corpuscular Hemoglobin 28.6, Mean Corpuscular Hemoglobin Concent 33.1, Red Cell Distribution Width 13.0, Platelet Count 258, Neutrophils (%) (Auto) 47.8, Lymphocytes (%) (Auto) 41.1, Monocytes ( %) (Auto) 4.1, Eosinophils (%) (Auto) 4.4H, Basophils (%) (Auto) 0.4, Neutrophils # (Auto) 3.7, Lymphocytes # (Auto) 3.3, Monocytes # (Auto) 0.3, Eosinophils # (Auto) 0.3, Basophils # (Auto) 0.0, Large Unclassified Cells % 2.3 , Large Unclassified Cells # 0.2, Anion Gap 6L, Glomerular Filtration Rate > 60.0, Calcium Level 8.5, Aspartate Amino Transf (AST/SGOT) 33, Alanine Aminotransferase (ALT/SGPT) 38, Alkaline Phosphatase 60, Total Bilirubin 0.4, Direct Bilirubin < 0.1, Ammonia 30, Total Creatine Kinase 447H, Creatine Kinase MB 3.4, Creatine Kinase MB Relative Index 0.76, Troponin I < 0.02, Total Protein 7.2, Albumin 3.9, Albumin/Globulin Ratio 1.18, Thyroid Stimulating Hormone (TSH) 1.050, Salicylates Level < 1.7L, Acetaminophen Level < 2.0L, Ethyl Alcohol Level < 0.003 11/22/16 06:57: White Blood Count 8.2, Red Blood Count 4.69, Hemoglobin 13.4, Hematocrit 40.4, Mean Corpuscular Volume 86.0, Mean Corpuscular Hemoglobin 28.6, Mean Corpuscular Hemoglobin Concent 33.3, Red Cell Distribution Width 13.3, Platelet Count 288, Neutrophils (%) (Auto) 68.9H, Lymphocytes (%) (Auto) 21.9L, Monocytes (%) (Auto) 4.2, Eosinophils (%) (Auto) 3.0, Basophils (%) (Auto) 0.5, Neutrophils # (Auto) 5.7, Lymphocytes # (Auto) 1.9, Monocytes # (Auto) 0.3, Eosinophils # (Auto) 0.2, Basophils # (Auto) 0.0, Large Unclassified Cells % 1.5 , Large Unclassified Cells # 0.1, Anion Gap 8, Glomerular Filtration Rate > 60.0 , Calcium Level 8.1L, Aspartate Amino Transf (AST/SGOT) 19, Alanine Aminotransferase (ALT/SGPT) 30, Alkaline Phosphatase 54, Total Bilirubin 0.3, Total Protein 6.2L, Albumin 3.3, Albumin/Globulin Ratio 1.14, Blood Urea Nitrogen 3L, Creatinine 0.66, Sodium Level 147H, Potassium Level 3.9, Chloride Level 112H, Carbon Dioxide Level 27, Magnesium Level 2.2 CBC/BMP Laboratory Tests 11/22/16 00:50 Red Blood Count 4.75, Mean Corpuscular Volume 86.5, Mean Corpuscular Hemoglobin 28.6, Mean Corpuscular Hemoglobin Concent 33.1, Red Cell Distribution Width 13.0 , Neutrophils (%) (Auto) 47.8, Lymphocytes (%) (Auto) 41.1, Monocytes (%) (Auto ) 4.1, Eosinophils (%) (Auto) 4.4 H, Basophils (%) (Auto) 0.4, Neutrophils # ( Auto) 3.7, Lymphocytes # (Auto) 3.3, Monocytes # (Auto) 0.3, Eosinophils # (Auto ) 0.3, Basophils # (Auto) 0.0 11/22/16 06:57 Red Blood Count 4.69, Mean Corpuscular Volume 86.0, Mean Corpuscular Hemoglobin 28.6, Mean Corpuscular Hemoglobin Concent 33.3, Red Cell Distribution Width 13.3 , Neutrophils (%) (Auto) 68.9 H, Lymphocytes (%) (Auto) 21.9 L, Monocytes (%) ( Auto) 4.2, Eosinophils (%) (Auto) 3.0, Basophils (%) (Auto) 0.5, Neutrophils # ( Auto) 5.7, Lymphocytes # (Auto) 1.9, Monocytes # (Auto) 0.3, Eosinophils # (Auto ) 0.2, Basophils # (Auto) 0.0, Calcium Level 8.1 L, Aspartate Amino Transf (AST/ SGOT) 19, Alanine Aminotransferase (ALT/SGPT) 30, Alkaline Phosphatase 54, Total Bilirubin 0.3, Total Protein 6.2 L, Albumin 3.3 TWILA WHARTON PA-C Nov 22, 2016 09:24
[2016-11-22] MEDS ORDERED: NICO10SP (09:34)
[2016-11-22] MEDS ORDERED: CLON0.5T PO (09:34)
[2016-11-22] MEDS ORDERED: NORE0.353 PO (09:35)
[2016-11-22] MEDS ORDERED: ACETAMINOPHEN TAB 650MG DOSE (2X325MG) PO PRN (10:15)
--- NOTE | 2016-11-22 10:41 | ECGEPIP ---
Stationary ECG Study [facility] - ED Test Date: 2016-11-21 Pat Name: SPENCER MACDONALD Department: Room: [place] [address] Gender: F Review Consultant: génesis : 1975 Requested By: LISA Zhou Order Number: [id number] Reading MD: Susy Edwards Measurements Intervals [place] Rate: 56 P: 21 [place]: 164 QRS: 33 QRSD: 91 T: 5 QT: 457 QTc: 444 Interpretive Statements SINUS BRADYCARDIA NSTTW ABNORMALITY DECREASED RATE 01/09/15 Electronically Signed On 11-22-2016 10:41:34 EDT by Susy Edwards
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
[2016-11-22] MEDS ORDERED: PREGABALIN 100 MG CAP (LYRICA) PO ONE (15:00)
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
[2016-11-27 00:06] LABS: BUPRENORPHINE FREE SERUM None Detected ng/mL (1-10); NORBUPRENORPHINE FREE SERUM None Detected (Not Estab.)
== END 2016-11-22 16:10 | disposition home or self-care (01) ==
LOC: M ED 20:49 → M ED INP 20:50 → M ED 11-22 01:18 → M ICU 11-22 05:57
PROVIDERS: ADMIT Internal Medicine; ATTEND Family Medicine
DX: T40.601A Poisoning by unspecified narcotics, accidental (unintentional), initial encounter (principal); G93.40 Encephalopathy, unspecified; F31.9 Bipolar disorder, unspecified; J45.20 Mild intermittent asthma, uncomplicated; M79.7 Fibromyalgia; M51.36 Other intervertebral disc degeneration, lumbar region; F43.12 Post-traumatic stress disorder, chronic; F41.9 Anxiety disorder, unspecified; Z79.899 Other long term (current) drug therapy; Z88.0 Allergy status to penicillin; Z88.2 Allergy status to sulfonamides; Z88.8 Allergy status to other drugs, medicaments and biological substances; R56.9 Unspecified convulsions
CPT/HCPCS: 36415; 36600; 51701; 70450; 70486; 80053; 80307; 80320; 80329; 80346; 80348; 82140; 82550; 82553; 82803; 83735; 84443; 85025; 93000; 93041; 94760; 96360; 96361; 96372; 99285; J2310

== ENCOUNTER → 2017-01-28 | Outpatient (CLI) | payer OTHER ==
[~2017-01-28] MED LIST changes: +CLON0.3T PO; +CLON0.5T PO; +IBUP1TAB6 PO; +LAMO150T PO; +LYRI300C PO; +NICO10SP; +NORE0.353 PO; +PATIENT COMMENT; +SUBO8MIS SL; +ZANA4TAB PO
[2017-01-28 18:03] LABS: ALBUMIN 3.9 GM/DL (3.2-5.2); ALBUMIN/GLOBULIN RATIO 1.22 (1.00-1.93); ALKALINE PHOSPHATASE 58 U/L (45-117); ALT/SGPT 18 U/L (12-78); AMYLASE 26 U/L (25-115); ANION GAP 8 MEQ/L (8-16); AST/SGOT 12 U/L (7-37); BILIRUBIN,TOTAL 0.3 MG/DL (0.2-1.0); BLOOD UREA NITROGEN 6 MG/DL (7-18); CALCIUM LEVEL 8.9 MG/DL (8.5-10.1); CARBON DIOXIDE LEVEL 27 MEQ/L (21-32); CHLORIDE LEVEL 107 MEQ/L (98-107); CREATININE FOR GFR 0.73 MG/DL (0.55-1.02); GLOMERULAR FILTRATION RATE > 60.0 (>60); GLUCOSE, FASTING 116 MG/DL (70-105); SODIUM LEVEL 142 MEQ/L (136-145); TOTAL PROTEIN 7.1 GM/DL (6.4-8.2)
[2017-01-28 18:07] LABS: BASO # 0.1 10^3/uL (0.0-0.2); BASO % 0.5 % (0.0-1.0); EOS # 0.1 10^3/uL (0.0-0.50); EOS % 1.3 % (0.0-3.0); IMMATURE GRANULOCYTE % 0.2 % (0-0); LYMPH # 3.5 10^3/uL (1.5-4.5); LYMPH % 37.4 % (24.0-44.0); MEAN CORPUSCULAR HEMOGLOBIN 28.2 pg (27.0-33.0); MEAN CORPUSCULAR HGB CONC 32.5 g/dl (32.0-36.5); MEAN CORPUSCULAR VOLUME 86.8 fl (80.0-96.0); MONO # 0.4 10^3/uL (0.0-0.8); MONO % 4.1 % (0.0-5.0); NEUTROPHILS # 5.3 10^3/uL (1.8-7.7); NEUTROPHILS % 56.5 % (36.0-66.0); PLATELET COUNT, AUTOMATED 263 10^3/uL (150-450); RED CELL DISTRIBUTION WIDTH 13.7 % (11.5-14.5); WHITE BLOOD COUNT 9.3 10^3/uL (4.0-10.0)
== END ==
LOC: M LAB 16:27
PROVIDERS: ATTEND Nurse Practitioner Family
DX: R10.12 Left upper quadrant pain (principal)

== ENCOUNTER → 2017-01-28 | Outpatient (CLI) | payer OTHER ==
[2017-01-28 18:33] LABS: ALBUMIN 3.9 GM/DL (3.2-5.2); ALBUMIN/GLOBULIN RATIO 1.34 (1.00-1.93); ALKALINE PHOSPHATASE 56 U/L (45-117); ALT/SGPT 20 U/L (12-78); AST/SGOT 12 U/L (7-37); BILIRUBIN,DIRECT < 0.1 MG/DL (0.0-0.2); BILIRUBIN,TOTAL 0.2 MG/DL (0.2-1.0); TOTAL PROTEIN 6.8 GM/DL (6.4-8.2)
[2017-01-31 00:06] LABS: HEPATITIS C QUANTITATION HCV Not Detected IU/mL (.)
== END ==
LOC: M LAB 16:32
PROVIDERS: ATTEND Internal Medicine Infectious Disease
DX: B18.2 Chronic viral hepatitis C (principal)

== ENCOUNTER → 2017-02-19 | Outpatient (REF) | payer OTHER, MEDICAID | LOC: M LAB REF 16:38 | PROVIDERS: ATTEND Family Medicine Addiction Medicine | DX: G89.4 Chronic pain syndrome (principal) ==

== ENCOUNTER → 2017-02-26 | Outpatient (REF) | payer OTHER, MEDICAID | LOC: M LAB REF 12:30 | PROVIDERS: ATTEND Family Medicine Addiction Medicine | DX: F19.10 Other psychoactive substance abuse, uncomplicated (principal) ==

== ENCOUNTER → 2017-03-21 | Outpatient (REF) | payer OTHER | LOC: M LAB REF 15:00 | PROVIDERS: ATTEND Family Medicine Addiction Medicine | DX: F19.10 Other psychoactive substance abuse, uncomplicated (principal) ==

== ENCOUNTER → 2017-04-09 | Outpatient (REF) | payer OTHER | LOC: M LAB REF 04-10 12:09 | DX: F19.10 Other psychoactive substance abuse, uncomplicated (principal) ==

== ENCOUNTER → 2017-04-16 | Outpatient (REF) | payer OTHER, MEDICAID | LOC: M LAB REF 04-17 12:55 | DX: F19.10 Other psychoactive substance abuse, uncomplicated (principal) ==

== ENCOUNTER → 2017-04-30 | Outpatient (REF) | payer OTHER, MEDICAID | LOC: M LAB REF 19:15 | DX: F19.10 Other psychoactive substance abuse, uncomplicated (principal) ==

== ENCOUNTER → 2017-05-02 | Outpatient (REF) | payer OTHER, MEDICAID | LOC: M LAB REF 19:07 | DX: F19.10 Other psychoactive substance abuse, uncomplicated (principal) ==

== ENCOUNTER → 2017-05-09 | Outpatient (REF) | payer OTHER, MEDICAID | LOC: M LAB REF 19:16 | DX: F19.10 Other psychoactive substance abuse, uncomplicated (principal) ==

== ENCOUNTER → 2017-05-12 | Outpatient (CLI) | payer MEDICAID | LOC: M OUTALCOH 12:39 | DX: Z13.9 Encounter for screening, unspecified (principal); F11.20 Opioid dependence, uncomplicated; F15.20 Other stimulant dependence, uncomplicated; F13.20 Sedative, hypnotic or anxiolytic dependence, uncomplicated ==

== ENCOUNTER 2017-05-22 10:05 | Outpatient (RCR) | payer MEDICAID | END 2017-05-28 | LOC: M OUTALCOH 10:05 | DX: F11.20 Opioid dependence, uncomplicated (principal); F15.20 Other stimulant dependence, uncomplicated; F13.20 Sedative, hypnotic or anxiolytic dependence, uncomplicated; F17.200 Nicotine dependence, unspecified, uncomplicated ==

== ENCOUNTER 2017-06-02 02:01 | Emergency (ER) | payer OTHER, MEDICAID | END 2017-06-02 03:53 | disposition home or self-care (01) | LOC: M ED 02:01 | DX: F11.10 Opioid abuse, uncomplicated (principal); J45.909 Unspecified asthma, uncomplicated; K21.9 Gastro-esophageal reflux disease without esophagitis; Z79.899 Other long term (current) drug therapy; Z88.0 Allergy status to penicillin; Z88.2 Allergy status to sulfonamides; Z88.8 Allergy status to other drugs, medicaments and biological substances; F17.210 Nicotine dependence, cigarettes, uncomplicated | CPT/HCPCS: 93971 ==

== ENCOUNTER → 2017-06-27 | Outpatient (REF) | payer OTHER | LOC: M SFHCPLAZ 16:02 | DX: B18.2 Chronic viral hepatitis C (principal); N91.2 Amenorrhea, unspecified; Z53.20 Procedure and treatment not carried out because of patient's decision for unspecified reasons ==

== ENCOUNTER → 2018-02-13 | Outpatient (CLI) | payer MEDICAID | LOC: M OUTALCOH 08:41 | DX: Z13.89 Encounter for screening for other disorder (principal); F11.20 Opioid dependence, uncomplicated ==

== ENCOUNTER 2018-03-26 15:30 | Outpatient (RCR) | payer MEDICAID ==
[~2018-03-26 15:30] MED LIST changes: -ACET50TA PO; -CLON0.5T PO; +CLON0.5T8 PO; -GABA-283 PO; +GABA-845 PO; -IBUP200C10 PO; +IBUP200C25 PO; -LAMO150T PO; +LAMO150T2 PO; +MAPA500T2 PO; +NAPR-50 PO; -NAPR500T PO; -NICO21DI5 TD; +NICO21DI6 TD; +TIZA4CAP PO; -TIZA4CAP3 PO; -TRAZ-136 PO; +TRAZ-163 PO
== END 2018-03-30 ==
LOC: M OUTALCOH 15:30
PROVIDERS: ATTEND Psychiatry & Neurology Psychiatry
DX: F11.20 Opioid dependence, uncomplicated (principal); F15.20 Other stimulant dependence, uncomplicated; F13.20 Sedative, hypnotic or anxiolytic dependence, uncomplicated; F17.200 Nicotine dependence, unspecified, uncomplicated

== ENCOUNTER 2018-04-27 14:00 | Outpatient (RCR) | payer MEDICAID | END 2018-04-30 | LOC: M OUTALCOH 14:00 | PROVIDERS: ATTEND Psychiatry & Neurology Psychiatry | DX: F11.20 Opioid dependence, uncomplicated (principal); F15.20 Other stimulant dependence, uncomplicated; F13.20 Sedative, hypnotic or anxiolytic dependence, uncomplicated; F17.200 Nicotine dependence, unspecified, uncomplicated ==

== ENCOUNTER 2018-05-25 14:00 | Outpatient (RCR) | payer MEDICAID | END 2018-05-28 | LOC: M OUTALCOH 14:00 | PROVIDERS: ATTEND Psychiatry & Neurology Psychiatry | DX: F11.20 Opioid dependence, uncomplicated (principal); F15.20 Other stimulant dependence, uncomplicated; F13.20 Sedative, hypnotic or anxiolytic dependence, uncomplicated; F17.200 Nicotine dependence, unspecified, uncomplicated ==

== ENCOUNTER 2018-06-17 16:00 | Outpatient (RCR) | payer MEDICAID | END 2018-06-28 | LOC: M OUTALCOH 16:00 | PROVIDERS: ATTEND Psychiatry & Neurology Psychiatry | DX: F11.20 Opioid dependence, uncomplicated (principal); F15.20 Other stimulant dependence, uncomplicated; F13.20 Sedative, hypnotic or anxiolytic dependence, uncomplicated; F17.200 Nicotine dependence, unspecified, uncomplicated ==

== ENCOUNTER → 2018-06-24 | Outpatient (REF) | payer MEDICAID ==
[2018-06-24 18:32] LABS: APPEARANCE, URINE CLOUDY (CLEAR); BACTERIA, URINE AUTO 1+ (NEGATIVE); BILIRUBIN, URINE AUTO NEGATIVE (NEGATIVE); BLOOD, URINE BLOOD NEGATIVE (NEGATIVE); CALCIUM OXALATE CRYSTALS LARGE; COLOR, URINE YELLOW (YELLOW); GLUCOSE, URINE (UA) AUTO NEGATIVE (NEGATIVE); KETONE, URINE AUTO NEGATIVE (NEGATIVE); LEUKOCYTE ESTERASE, URINE AUTO TRACE (NEGATIVE); MUCUS, URINE SMALL (NEGATIVE); NITRITE, URINE AUTO NEGATIVE (NEGATIVE); PROTEIN, URINE AUTO NEGATIVE (NEGATIVE); RBC, URINE AUTO 1 /HPF (0-3); SQUAMOUS EPITHELIAL CELL UR AU 9 /HPF (0-6); WBC, URINE AUTO 14 /HPF (0-3)
== END ==
LOC: M LAB REF 16:44
PROVIDERS: ATTEND Physician Assistant
DX: N39.0 Urinary tract infection, site not specified (principal)

== ENCOUNTER 2018-07-22 16:00 | Outpatient (RCR) | payer MEDICAID ==
[~2018-07-22 16:00] MED LIST changes: -/HALO5TAB OR; -/MOXI40TA; -/QUET25TA OR; +AVEL1TAB2; +HALO1TAB21 OR; -NAPR-50 PO; +NAPR-837 PO; +SERO1TAB3 OR
== END 2018-07-28 ==
LOC: M OUTALCOH 16:00
PROVIDERS: ATTEND Psychiatry & Neurology Psychiatry
DX: F11.20 Opioid dependence, uncomplicated (principal); F15.20 Other stimulant dependence, uncomplicated; F13.20 Sedative, hypnotic or anxiolytic dependence, uncomplicated; F17.200 Nicotine dependence, unspecified, uncomplicated

== ENCOUNTER 2018-08-07 06:27 | Emergency (ER) | payer MEDICAID, OTHER ==
[~2018-08-07] VITALS: Ht 160 cm; Wt 72.7 kg
[2018-08-07] MEDS ORDERED: SERO1TAB2 PO (06:35)
[2018-08-07 11:32] VITALS: BP 118/70
== END 2018-08-07 11:33 | disposition home or self-care (01) ==
LOC: M ED 06:27
DX: F19.122 Other psychoactive substance abuse with intoxication with perceptual disturbances (principal); Z88.0 Allergy status to penicillin; Z88.2 Allergy status to sulfonamides; Z88.8 Allergy status to other drugs, medicaments and biological substances; Z79.899 Other long term (current) drug therapy

== ENCOUNTER 2018-08-17 14:42 | Emergency (ER) | payer OTHER ==
[~2018-08-17] VITALS: Ht 160 cm; Wt 77.3 kg
[~2018-08-17 14:42] MED LIST changes: +SERO1TAB2 PO
[2018-08-17 18:52] LABS: HEMOGLOBIN 12.9 g/dl (12.0-15.5); MEAN CORPUSCULAR HEMOGLOBIN 27.7 pg (27.0-33.0); MEAN CORPUSCULAR HGB CONC 31.5 g/dl (32.0-36.5); MEAN CORPUSCULAR VOLUME 88.2 fl (80.0-96.0); PLATELET COUNT, AUTOMATED 260 10^3/uL (150-450); RED BLOOD COUNT 4.65 10^6/uL (4.00-5.40); WHITE BLOOD COUNT 12.5 10^3/uL (4.0-10.0)
[2018-08-17 19:16] LABS: BLOOD UREA NITROGEN 9 MG/DL (7-18); CALCIUM LEVEL 8.7 MG/DL (8.5-10.1); CARBON DIOXIDE LEVEL 27 MEQ/L (21-32); CHLORIDE LEVEL 106 MEQ/L (98-107); CPK CREATINE PHOSPHOKINASE 53 U/L (26-192); CREATININE FOR GFR 0.65 MG/DL (0.55-1.30); GLOMERULAR FILTRATION RATE > 60.0 (>58); GLUCOSE, FASTING 107 MG/DL (70-100); POTASSIUM SERUM 4.1 MEQ/L (3.5-5.1); SODIUM LEVEL 139 MEQ/L (136-145)
[2018-08-17 19:25] LABS: AMPHETAMINES LEVEL URINE NEGATIVE (NEGATIVE); BARBITURATES URINE NEGATIVE (NEGATIVE); BENZODIAZEPINES URINE POSITIVE (NEGATIVE); CANNABINOIDS URINE NEGATIVE (NEGATIVE); COCAINE METABOLITE URINE NEGATIVE (NEGATIVE); METHADONE URINE NEGATIVE (NEGATIVE); OPIATES URINE NEGATIVE (NEGATIVE); PHENCYCLIDINE URINE NEGATIVE (NEGATIVE)
[2018-08-17 19:39] LABS: HCG, SERUM QUANTITATIVE 13 MIU/ML
[2018-08-17 20:24] VITALS: BP 131/64
[2018-08-17] MEDS ORDERED: IBUP-1022 PO (20:27)
== END 2018-08-17 20:34 | disposition home or self-care (01) ==
LOC: M ED 14:42
DX: S09.90XA Unspecified injury of head, initial encounter (principal); S00.83XA Contusion of other part of head, initial encounter; S11.91XA Laceration without foreign body of unspecified part of neck, initial encounter; T76.11XA Adult physical abuse, suspected, initial encounter; X58.XXXA Exposure to other specified factors, initial encounter; Y92.9 Unspecified place or not applicable; Y93.9 Activity, unspecified; Y99.9 Unspecified external cause status; M79.7 Fibromyalgia; M79.10 Myalgia, unspecified site; F19.10 Other psychoactive substance abuse, uncomplicated; K76.9 Liver disease, unspecified; Z72.0 Tobacco use; Z79.899 Other long term (current) drug therapy; Z88.0 Allergy status to penicillin; Z88.2 Allergy status to sulfonamides; Z88.8 Allergy status to other drugs, medicaments and biological substances

== ENCOUNTER 2018-08-25 15:29 | Outpatient (RCR) | payer MEDICAID ==
[~2018-08-25 15:29] MED LIST changes: +IBUP-1022 PO
== END 2018-08-28 ==
LOC: M OUTALCOH 15:29
PROVIDERS: ATTEND Psychiatry & Neurology Psychiatry
DX: F11.20 Opioid dependence, uncomplicated (principal); F15.20 Other stimulant dependence, uncomplicated; F13.20 Sedative, hypnotic or anxiolytic dependence, uncomplicated; F17.200 Nicotine dependence, unspecified, uncomplicated

== ENCOUNTER → 2018-08-28 | Outpatient (CLI) | payer OTHER ==
--- NOTE | 2018-08-28 11:34 | REP ---
FIRST TRIMESTER ULTRASOUND: Real-time sonographic evaluation of the pelvis performed utilizing transabdominal and endovaginal technique. Uterus measures 9.6 x 5.3 x 6.7 cm. There does appear to be gestational sac in the endometrial canal with good decidual reaction with a mean sac diameter of 6 mm corresponding to an estimated gestational age of 5 weeks 1 day. However no yolk sac or pole is seen. Fibroid is seen in the left lower uterine segment 1.6 x 1.1 x 1.3 cm. Right ovary is visualized measuring 3.0 x 2.2 x 2.7 cm. Paraovarian cyst measures 7.7 x 6.9 x 6.5 cm. Left ovary could not be visualized. Within the right ovary itself a cystic structure may represent a corpus luteum 1.3 x 1.2 x 1.6 cm. IMPRESSION: There appears to be a gestational sac in the endometrial canal 6 mm in diameter corresponding to an estimated gestational age of 5 weeks 1 day. No yolk sac or pole is seen. Recommend followup ultrasound in 10-14 days to document a viability. Note is also made of a large right paraovarian cyst 7.7 x 6.9 x 6.5 cm. Followup suggested. Electronically Signed by Per Olivares MD 08/28/2018 04:15 P
== END ==
LOC: M RAD 09:21
PROVIDERS: ATTEND Physician Assistant
DX: Z32.01 Encounter for pregnancy test, result positive (principal); D25.9 Leiomyoma of uterus, unspecified; N83.201 Unspecified ovarian cyst, right side

== ENCOUNTER → 2018-09-10 | Outpatient (CLI) | payer OTHER ==
--- NOTE | 2018-09-10 12:57 | REP ---
FIRST TRIMESTER OBSTETRIC SONOGRAPHY: HISTORY: Supervision of . FINDINGS: Scanning through the gravid uterus demonstrates a viable single intrauterine gestation. Embryonic pole measures 1.1 cm in crown-rump length. This corresponds with a gestational age estimate of 7 weeks 2 days. heart rate is recorded at 120 beats per minute. A small subchorionic complex fluid collection is seen superior to the gestational sac measuring 2.0 x 0.6 x 6.0 cm. There is a hypoechoic area in the lower uterine segment 1.1 cm in greatest diameter which may be a Nabothian cyst or a small fibroid. There is a 7.5 cm anechoic right ovarian cyst consistent with corpus luteum. IMPRESSION: Viable single intrauterine gestation at 7 weeks 2 days by crown-rump length. RUCHI by sonography April 27, 2019. 7.5 cm corpus luteum cyst right ovary. 2.0 x 6.0 x 0.6 cm subchorionic fluid collection noted. Electronically Signed by Jeyson Reza MD 09/10/2018 03:07 P
== END ==
LOC: M RAD 11:24
PROVIDERS: ATTEND Nurse Practitioner Family
DX: Z36.89 Encounter for other specified antenatal screening (principal); Z3A.01 Less than 8 weeks gestation of pregnancy

== ENCOUNTER → 2018-09-10 | Outpatient (CLI) | payer OTHER ==
[2018-09-10 13:58] LABS: HEMATOCRIT 39.2 % (36.0-47.0); HEMOGLOBIN 12.6 g/dl (12.0-15.5); MEAN CORPUSCULAR HEMOGLOBIN 27.3 pg (27.0-33.0); MEAN CORPUSCULAR HGB CONC 32.1 g/dl (32.0-36.5); MEAN CORPUSCULAR VOLUME 84.8 fl (80.0-96.0); PLATELET COUNT, AUTOMATED 312 10^3/uL (150-450); RED BLOOD COUNT 4.62 10^6/uL (4.00-5.40); WHITE BLOOD COUNT 9.4 10^3/uL (4.0-10.0)
[2018-09-10 14:32] LABS: ALBUMIN 3.6 GM/DL (3.2-5.2); ALT/SGPT 15 U/L (12-78); BILIRUBIN,DIRECT < 0.1 MG/DL (0.0-0.2); BILIRUBIN,TOTAL 0.2 MG/DL (0.2-1.0); BLOOD UREA NITROGEN 8 MG/DL (7-18); CALCIUM LEVEL 8.9 MG/DL (8.5-10.1); CARBON DIOXIDE LEVEL 25 MEQ/L (21-32); CHLORIDE LEVEL 106 MEQ/L (98-107); CREATININE FOR GFR 0.68 MG/DL (0.55-1.30); GLOMERULAR FILTRATION RATE > 60.0 (>58); GLUCOSE, FASTING 81 MG/DL (70-100); POTASSIUM SERUM 4.2 MEQ/L (3.5-5.1); SODIUM LEVEL 138 MEQ/L (136-145); TOTAL PROTEIN 7.6 GM/DL (6.4-8.2)
== END ==
LOC: M LAB 12:34
PROVIDERS: ATTEND Nurse Practitioner Family
DX: Z01.812 Encounter for preprocedural laboratory examination (principal)

== ENCOUNTER 2018-09-25 08:00 | Outpatient (RCR) | payer MEDICAID | END 2018-09-27 | LOC: M OUTALCOH 08:00 | PROVIDERS: ATTEND Psychiatry & Neurology Psychiatry | DX: F11.20 Opioid dependence, uncomplicated (principal); F15.20 Other stimulant dependence, uncomplicated; F13.20 Sedative, hypnotic or anxiolytic dependence, uncomplicated; F17.200 Nicotine dependence, unspecified, uncomplicated ==

== ENCOUNTER 2018-10-21 08:45 | Outpatient (RCR) | payer MEDICAID ==
[~2018-10-21 08:45] MED LIST changes: +ZANT150T40 PO; -ZANTTAB PO
== END 2018-10-28 ==
LOC: M OUTALCOH 08:45
PROVIDERS: ATTEND Psychiatry & Neurology Psychiatry
DX: F11.20 Opioid dependence, uncomplicated (principal); F13.20 Sedative, hypnotic or anxiolytic dependence, uncomplicated; F15.20 Other stimulant dependence, uncomplicated; F17.200 Nicotine dependence, unspecified, uncomplicated

== ENCOUNTER 2018-11-25 15:30 | Outpatient (RCR) | payer MEDICAID ==
[2018-11-25] MEDS ORDERED: CLEO300C2 PO (22:06)
== END 2018-11-28 ==
LOC: M OUTALCOH 15:30
PROVIDERS: ATTEND Psychiatry & Neurology Psychiatry
DX: F11.20 Opioid dependence, uncomplicated (principal); F15.20 Other stimulant dependence, uncomplicated; F13.20 Sedative, hypnotic or anxiolytic dependence, uncomplicated; F17.200 Nicotine dependence, unspecified, uncomplicated

== ENCOUNTER 2018-11-25 19:33 | Emergency (ER) | payer MEDICAID, OTHER ==
[~2018-11-25] VITALS: Ht 160 cm; Wt 87.7 kg
[~2018-11-25 19:33] MED LIST changes: +CLON0.5T2 PO; -CLON0.5T8 PO; -LAMO150T2 PO; +LAMO150T3 PO; -TRAZ-163 PO; +TRAZ-257 PO
[2018-11-25 21:04] LABS: BASO % 0.3 % (0.0-1.0); EOS # 0.3 10^3/uL (0.0-0.50); EOS % 2.6 % (0.0-3.0); HEMATOCRIT 33.7 % (36.0-47.0); LYMPH # 2.9 10^3/uL (1.5-4.5); LYMPH % 29.7 % (24.0-44.0); MEAN CORPUSCULAR HEMOGLOBIN 28.1 pg (27.0-33.0); MEAN CORPUSCULAR HGB CONC 32.6 g/dl (32.0-36.5); MEAN CORPUSCULAR VOLUME 86.2 fl (80.0-96.0); MONO # 0.5 10^3/uL (0.0-0.8); NEUTROPHILS # 6.1 10^3/uL (1.8-7.7); NEUTROPHILS % 62.1 % (36.0-66.0); PLATELET COUNT, AUTOMATED 256 10^3/uL (150-450); RED BLOOD COUNT 3.91 10^6/uL (4.00-5.40); WHITE BLOOD COUNT 9.9 10^3/uL (4.0-10.0)
[2018-11-25 21:27] LABS: ERYTHROCYTE SEDIMENTATION RATE 46 mm/hr (0-20)
[2018-11-25] MEDS ORDERED: CLEO300C2 PO (22:06)
[2018-11-25] MEDS ORDERED: CLINDAMYCIN 150 MG CAP PO ONE (22:15)
[2018-11-25 22:19] VITALS: BP 122/74
== END 2018-11-25 22:14 | disposition home or self-care (01) ==
LOC: M ED 19:33
DX: L03.211 Cellulitis of face (principal); L03.811 Cellulitis of head [any part, except face]; O99.89 Other specified diseases and conditions complicating pregnancy, childbirth and the puerperium; L03.113 Cellulitis of right upper limb; L03.114 Cellulitis of left upper limb; L03.115 Cellulitis of right lower limb; L03.116 Cellulitis of left lower limb; O99.519 Diseases of the respiratory system complicating pregnancy, unspecified trimester; O09.519 Supervision of elderly primigravida, unspecified trimester; Z79.899 Other long term (current) drug therapy; Z88.0 Allergy status to penicillin; Z88.2 Allergy status to sulfonamides; Z88.8 Allergy status to other drugs, medicaments and biological substances

== ENCOUNTER 2018-11-26 16:04 | Emergency (ER) | payer OTHER ==
[~2018-11-26] VITALS: Ht 160 cm; Wt 85.0 kg
[~2018-11-26 16:04] MED LIST changes: +CLEO300C2 PO; -CLON0.5T2 PO; +CLON0.5T8 PO; +LAMO150T2 PO; -LAMO150T3 PO; +TRAZ-163 PO; -TRAZ-257 PO
[2018-11-26 17:01] LABS: HEMATOCRIT 35.7 % (36.0-47.0); HEMOGLOBIN 11.8 g/dl (12.0-15.5); MEAN CORPUSCULAR HEMOGLOBIN 28.5 pg (27.0-33.0); MEAN CORPUSCULAR HGB CONC 33.1 g/dl (32.0-36.5); MEAN CORPUSCULAR VOLUME 86.2 fl (80.0-96.0); PLATELET COUNT, AUTOMATED 255 10^3/uL (150-450); RED BLOOD COUNT 4.14 10^6/uL (4.00-5.40); WHITE BLOOD COUNT 9.4 10^3/uL (4.0-10.0)
[2018-11-26 17:22] LABS: HCG, SERUM QUALITATIVE POSITIVE (NEGATIVE)
[2018-11-26 17:24] LABS: AMPHETAMINES LEVEL URINE NEGATIVE (NEGATIVE); BARBITURATES URINE NEGATIVE (NEGATIVE); BENZODIAZEPINES URINE NEGATIVE (NEGATIVE); CANNABINOIDS URINE NEGATIVE (NEGATIVE); COCAINE METABOLITE URINE NEGATIVE (NEGATIVE); METHADONE URINE NEGATIVE (NEGATIVE); OPIATES URINE NEGATIVE (NEGATIVE); PHENCYCLIDINE URINE NEGATIVE (NEGATIVE)
[2018-11-26 17:28] LABS: ACETAMINOPHEN LEVEL < 2.0 UG/ML (10.0-30.0); ALBUMIN 2.8 GM/DL (3.2-5.2); ALT/SGPT 17 U/L (12-78); BILIRUBIN,DIRECT < 0.1 MG/DL (0.0-0.2); BILIRUBIN,TOTAL 0.2 MG/DL (0.2-1.0); BLOOD UREA NITROGEN 4 MG/DL (7-18); CALCIUM LEVEL 8.2 MG/DL (8.5-10.1); CARBON DIOXIDE LEVEL 25 MEQ/L (21-32); CHLORIDE LEVEL 109 MEQ/L (98-107); CREATININE FOR GFR 0.53 MG/DL (0.55-1.30); ETHYL ALCOHOL (ETHANOL) < 0.003 % (0.000-0.010); GLOMERULAR FILTRATION RATE > 60.0 (>58); GLUCOSE, FASTING 70 MG/DL (70-100); POTASSIUM SERUM 3.9 MEQ/L (3.5-5.1); SALICYLATE LEVEL 1.8 MG/DL (5.0-30.0); SODIUM LEVEL 141 MEQ/L (136-145); TOTAL PROTEIN 6.4 GM/DL (6.4-8.2)
[2018-11-26] MEDS ORDERED: SIMVASTATIN 40 MG TAB PO ONE (19:30)
[2018-11-26] MEDS ORDERED: traZODone 50 MG TAB PO ONE (19:30)
[2018-11-26] MEDS ORDERED: metFORMIN (GLUCOPHAGE) 500 MG TAB PO ONE (19:30)
[2018-11-26 19:52] VITALS: BP 121/58
[2018-11-26] MEDS ORDERED: cloZAPine 100 MG TAB (S0136) PO SCH (21:00)
[2018-11-26] MEDS ORDERED: TEMAZEPAM 15 MG CAP PO SCH (21:00)
== END 2018-11-26 19:56 | disposition home or self-care (01) ==
LOC: M ED 16:04
DX: O99.342 Other mental disorders complicating pregnancy, second trimester (principal); F41.1 Generalized anxiety disorder; F32.9 Major depressive disorder, single episode, unspecified; O99.512 Diseases of the respiratory system complicating pregnancy, second trimester; J45.909 Unspecified asthma, uncomplicated; O99.112 Other diseases of the blood and blood-forming organs and certain disorders involving the immune mechanism complicating pregnancy, second trimester; B19.20 Unspecified viral hepatitis C without hepatic coma; O99.89 Other specified diseases and conditions complicating pregnancy, childbirth and the puerperium; M79.7 Fibromyalgia; M79.18 Myalgia, other site; M51.9 Unspecified thoracic, thoracolumbar and lumbosacral intervertebral disc disorder; O99.332 Smoking (tobacco) complicating pregnancy, second trimester; F17.210 Nicotine dependence, cigarettes, uncomplicated; Z88.0 Allergy status to penicillin; Z88.2 Allergy status to sulfonamides; Z88.8 Allergy status to other drugs, medicaments and biological substances; Z79.899 Other long term (current) drug therapy; Z79.2 Long term (current) use of antibiotics; Z3A.18 18 weeks gestation of pregnancy
CPT/HCPCS: 36415; 80048; 80076; 80307; 84443; 84703; 85027; 99284; G0480

== ENCOUNTER 2018-12-09 15:30 | Outpatient (RCR) | payer MEDICAID | END 2018-12-28 | LOC: M OUTALCOH 15:30 | PROVIDERS: ATTEND Psychiatry & Neurology Psychiatry | DX: F11.20 Opioid dependence, uncomplicated (principal); F15.20 Other stimulant dependence, uncomplicated; F13.20 Sedative, hypnotic or anxiolytic dependence, uncomplicated; F17.200 Nicotine dependence, unspecified, uncomplicated ==

== ENCOUNTER 2019-03-31 17:56 | Inpatient (IN) | payer MEDICAID ==
[~2019-03-31] VITALS: Ht 160 cm; Wt 90.8 kg
[~2019-03-31 17:56] MED LIST changes: +CLON0.5T2 PO; -CLON0.5T8 PO; -LAMO150T2 PO; +LAMO150T3 PO
[2019-03-31 18:10] VITALS: BP 128/59
[2019-03-31] MEDS ORDERED: LACTATED RINGER'S 1000 ML IV STA (18:43)
[2019-03-31] MEDS ORDERED: AZITHROMYCIN INJ 500 MG, VIAL MATE ADAPTER 1 EACH in D5W 250 ML IV ONE (18:45)
[2019-03-31] MEDS ORDERED: ceFAZolin SOD 2 GM in IV 1 EA IV ONE (18:45)
[2019-03-31] MEDS ORDERED: BICITRA 30ML SOLN UDC PO ONE (18:45)
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
[2019-03-31 19:19] LABS: HEMATOCRIT 32.5 % (36.0-47.0); HEMOGLOBIN 9.9 g/dl (12.0-15.5); MEAN CORPUSCULAR HEMOGLOBIN 24.5 pg (27.0-33.0); MEAN CORPUSCULAR HGB CONC 30.5 g/dl (32.0-36.5); MEAN CORPUSCULAR VOLUME 80.4 fl (80.0-96.0); PLATELET COUNT, AUTOMATED 409 10^3/uL (150-450); RED BLOOD COUNT 4.04 10^6/uL (4.00-5.40)
[2019-03-31] MEDS ORDERED: LR 1,000 ML IV SCH (19:30)
[2019-03-31 19:37] LABS: ALBUMIN 2.3 GM/DL (3.2-5.2); ALT/SGPT 32 U/L (12-78); BILIRUBIN,TOTAL 0.4 MG/DL (0.2-1.0); BLOOD UREA NITROGEN 10 MG/DL (7-18); CALCIUM LEVEL 9.5 MG/DL (8.5-10.1); CARBON DIOXIDE LEVEL 22 MEQ/L (21-32); CHLORIDE LEVEL 104 MEQ/L (98-107); CREATININE FOR GFR 0.76 MG/DL (0.55-1.30); GLOMERULAR FILTRATION RATE > 60.0 (>58); GLUCOSE, FASTING 89 MG/DL (70-100); POTASSIUM SERUM 3.8 MEQ/L (3.5-5.1); SODIUM LEVEL 137 MEQ/L (136-145); TOTAL PROTEIN 7.1 GM/DL (6.4-8.2)
[2019-03-31] MEDS ORDERED: OXYTOCIN INJ 10 UNITS/ML VIAL (J2590) As Ordered ONE ×2 (19:57→19:58)
[2019-03-31] MEDS ORDERED: MORPHINE PRES-FREE INJ 10 MG/10 ML VIAL (J2274) As Ordered ONE (20:03)
[2019-03-31] MEDS ORDERED: diphenhydrAMINE INJ 50MG/ML VIAL (J1200) As Ordered ONE (20:13)
[2019-03-31] MEDS ORDERED: diphenhydrAMINE INJ 50MG/ML VIAL (J1200) IV PRN (20:58)
[2019-03-31] MEDS ORDERED: NALBUPHINE HCL 10 MG/ML AMP (J2300) IV PRN (20:58)
[2019-03-31] MEDS ORDERED: METOCLOPRAMIDE INJ 10MG/2ML VIAL (J2765) IV PRN ×2 (20:58→22:30)
[2019-03-31] MEDS ORDERED: ONDANSETRON 4MG/2ML VIAL (J2405) IV PRN ×3 (20:58→22:30)
[2019-03-31] MEDS ORDERED: NALOXONE INJ 0.4 MG/1 ML VIAL (J2310) IV PRN ×2 (20:58)
[2019-03-31] MEDS ORDERED: diphenhydrAMINE INJ 50MG/ML VIAL (J1200) IV ONE (21:00)
[2019-03-31] MEDS ORDERED: ONDANSETRON 4MG/2ML VIAL (J2405) As Ordered ONE (21:19)
[2019-03-31] MEDS ORDERED: PHENYLephrine HCL 500 MCG/5 ML (100MCG/ML) SYRINGE (J2370) As Ordered ONE (21:19)
[2019-03-31] MEDS ORDERED: dexameTHASONE 4 MG/ML 1ML VIAL (J1100) As Ordered ONE (21:19)
[2019-03-31] MEDS ORDERED: ePHEDrine SULFATE 25 MG/5 ML(5MG/ML) SYRINGE As Ordered ONE (21:28)
[2019-03-31 21:34] LABS: CORD GAS ABE V -1.2; CORD GAS HCO3 V 24.7 MEQ/L; CORD GAS O2 SAT V 41.8 %; CORD GAS PCO2 V 45.8 mmHg; CORD GAS PH V 7.349 UNITS; CORD GAS PO2 V 19.2 mmHg; CORD GAS SBC V 22.2 MEQ/L; CORD GAS TCO2 V 26.1 MEQ/L
[2019-03-31 21:43] LABS: AMPHETAMINES URINE REFLEX NEGATIVE (NEGATIVE); BARBITURATES URINE REFLEX NEGATIVE (NEGATIVE); BENZODIAZEPINES URINE REFLEX NEGATIVE (NEGATIVE); CANNABINOIDS URINE REFLEX NEGATIVE (NEGATIVE); COCAINE METABOLITE URINE REFLE NEGATIVE (NEGATIVE); METHADONE URINE REFLEX NEGATIVE (NEGATIVE); OPIATES URINE REFLEX NEGATIVE (NEGATIVE); PHENCYCLIDINE URINE REFLEX NEGATIVE (NEGATIVE)
[2019-03-31] MEDS ORDERED: OXYTOCIN DRIP 30 UNITS in IV 1 EA IV SCH (21:57)
[2019-03-31] MEDS ORDERED: ONDANSETRON 4 MG TAB (S0181) PO PRN (22:00)
[2019-03-31] MEDS ORDERED: RHOGAM 300 MCG (1500 IU) INJ (J2790) IM SCH (22:00)
[2019-03-31] MEDS ORDERED: MEASLES,MUMPS,RUBELLA VACCINE INJ (MMR-II) (90707) SC SCH (22:00)
[2019-03-31] MEDS ORDERED: DOCUSATE SODIUM 100 MG CAP PO PRN (22:00)
[2019-03-31] MEDS ORDERED: NS 1,000 ML IV SCH (22:30)
[2019-03-31] MEDS ORDERED: KETOROLAC 30 MG/ML VIAL (J1885) IV PRN (22:30)
[2019-03-31] MEDS ORDERED: ACETAMINOPHEN *IV* 1,000 MG IV PRN ×2 (22:30)
[2019-03-31] MEDS ORDERED: KETOROLAC 30 MG/ML VIAL (J1885) IV SCH (23:00)
[2019-03-31] MEDS ORDERED: KETOROLAC 30 MG/ML VIAL (J1885) As Ordered ONE (23:03)
[2019-03-31] MEDS: LR 1,000 ML IV SCH (23:35)
[2019-03-31] MEDS ORDERED: OXYTOCIN 30 UNITS IN 0.9% NaCl 500ML IV BAG (J2590) As Ordered ONE (23:36)
[2019-04-01] VITALS (7 sets, daily range): BP systolic 102–128; BP diastolic 53–67
[2019-04-01] MEDS: LR 1,000 ML IV SCH ×2 (08:08→11:49)
[2019-04-01 08:09] LABS: HEMATOCRIT 28.5 % (36.0-47.0); HEMOGLOBIN 8.9 g/dl (12.0-15.5); MEAN CORPUSCULAR HGB CONC 31.2 g/dl (32.0-36.5); MEAN CORPUSCULAR VOLUME 83.3 fl (80.0-96.0); RED BLOOD COUNT 3.42 10^6/uL (4.00-5.40); WHITE BLOOD COUNT 15.3 10^3/uL (4.0-10.0)
--- NOTE | 2019-04-01 08:43 | RO ---
DATE OF PROCEDURE: 03/31/2019 PREPROCEDURE DIAGNOSIS: 35 and 6/7 weeks gestation, bleeding placenta previa. POSTPROCEDURE DIAGNOSIS: 35 and 6/7 weeks gestation, bleeding placenta previa. PROCEDURE: Primary low transverse section. FINDINGS: 5 # 11 oz. male infant, Apgars 8,9. Anterior placenta previa SURGEON: Dr. Moo Myrick PRODUCT ANALYST: Bart Spencer CNM ANESTHESIA: Spinal. ESTIMATED BLOOD LOSS: 800 mL. URINE OUTPUT: 150 mL. PACKED RED BLOODS: 1 unit. DESCRIPTION OF PROCEDURE: The patient was taken to the operating room where spinal anesthesia was induced. She was prepped and draped in sterile fashion in the supine position. A Brantley catheter was placed. A Pfannenstiel skin incision was made with the scalpel and carried through to the fascia. The fascia was nicked and extended. The fascia was dissected off the rectus muscles. The peritoneal cavity was entered. A bladder flap was created. A curvilinear incision was made in the lower uterine segment until clear fluid was noted. The placenta was noted to be anterior placenta previa. The placenta was moved out of the way and the vertex was delivered. The cord was doubly clamped and cut. The was handed off to the awaiting nurses. The director international was also present. The placenta was expressed. The uterus was closed with #0 Vicryl in a running locked fashion. A second imbricating layer of #0 Vicryl was placed. The uterus, fallopian tubes and ovaries appeared normal. The peritoneum was closed with #2-0 Vicryl in a running fashion. The fascia was closed with #0 Vicryl in a running fashion. The deep layer was irrigated and closed with #3-0 chromic. The skin was closed with #4-0 Monocryl subcuticular sutures. Sponge, instrument and needle counts were correct. MTDD
[2019-04-01] MEDS ORDERED: BUPRENORPHINE/NALOXONE 8-2MG SUBLINGUAL TABLET(SUBOXONE) SL SCH (09:00)
[2019-04-01] MEDS: PRENATAL VITAMINS CHEWABLE TABLET PO SCH (09:02)
[2019-04-01] MEDS: KETOROLAC 30 MG/ML VIAL (J1885) IV SCH ×3 (11:13→17:01)
[2019-04-01] MEDS ORDERED: diphenhydrAMINE 25 MG CAP PO PRN (11:45)
[2019-04-01] MEDS: NICOTINE 21MG/24HR 1 EA TRANSDERMAL TD SCH (11:49)
[2019-04-01] MEDS: CALAMINE LOTION 177 ML BTL TOP SCH ×2 (12:36→21:44)
[2019-04-01] MEDS: PREGABALIN 100 MG CAP (LYRICA) PO SCH ×2 (15:22→21:43)
[2019-04-01] MEDS: IBUPROFEN 800 MG TAB PO SCH (18:32)
[2019-04-01] MEDS: BUPRENORPHINE/NALOXONE 8-2MG SUBLINGUAL TABLET(SUBOXONE) SL SCH (21:43)
[2019-04-01] MEDS: QUEtiapine FUMARATE 100 MG TAB PO SCH (21:43)
[2019-04-02 02:33] VITALS: BP 104/52
[2019-04-02] MEDS: IBUPROFEN 800 MG TAB PO SCH ×3 (03:50→18:32)
[2019-04-02 05:44] VITALS: BP 113/55
[2019-04-02] MEDS: PRENATAL VITAMINS CHEWABLE TABLET PO SCH (08:17)
[2019-04-02] MEDS: NICOTINE 21MG/24HR 1 EA TRANSDERMAL TD SCH (08:18)
[2019-04-02] MEDS: BUPRENORPHINE/NALOXONE 8-2MG SUBLINGUAL TABLET(SUBOXONE) SL SCH ×2 (08:18→20:28)
[2019-04-02] MEDS: PREGABALIN 100 MG CAP (LYRICA) PO SCH ×3 (08:18→20:28)
[2019-04-02] MEDS: CALAMINE LOTION 177 ML BTL TOP SCH ×2 (08:19→20:34)
[2019-04-02 10:00] VITALS: BP 118/65
[2019-04-02 14:00] VITALS: BP 115/62
[2019-04-02 17:58] VITALS: BP 126/67
[2019-04-02] MEDS: QUEtiapine FUMARATE 100 MG TAB PO SCH (20:32)
[2019-04-02 22:00] VITALS: BP 121/61
[2019-04-03] MEDS: IBUPROFEN 800 MG TAB PO SCH ×2 (02:34→10:33)
[2019-04-03 06:23] VITALS: BP 126/75
[2019-04-03] MEDS: PRENATAL VITAMINS CHEWABLE TABLET PO SCH (09:05)
[2019-04-03] MEDS: BUPRENORPHINE/NALOXONE 8-2MG SUBLINGUAL TABLET(SUBOXONE) SL SCH (09:05)
[2019-04-03] MEDS: CALAMINE LOTION 177 ML BTL TOP SCH (09:07)
[2019-04-03] MEDS: NICOTINE 21MG/24HR 1 EA TRANSDERMAL TD SCH (09:07)
[2019-04-03] MEDS: PREGABALIN 100 MG CAP (LYRICA) PO SCH (10:33)
[2019-04-03] MEDS ORDERED: IBUP80TA PO (11:12)
--- NOTE | 2019-04-03 19:02 | DS.PDOC ---
Discharge Summary General Date of Admission Mar 31, 2019 at 18:41 Date of Discharge 04/03/2019 Attending Physician: JAZ ROBB MD Discharge Summary PROCEDURES PERFORMED DURING STAY: 1. Spinal anesthesia. 2. section. 3. Transfusion of 2 packed red blood cells ADMITTING DIAGNOSES: 1., Intrauterine at 35 weeks with bleeding placenta previa. DISCHARGE DIAGNOSES: 1. Intrauterine at 35 weeks with bleeding placenta previa. COMPLICATIONS/CHIEF COMPLAINT: Bleeding. HISTORY OF PRESENT ILLNESS:. This patient is a 44-year-old 7, para 3, presented with painful contractions and active vaginal bleeding. She is had [facility] care upon her evaluation. Bedside ultrasound was performed demonstrating an anterior placenta previa. She was then consented for section with the above indication section was uncomplicated, productive of a live born , Apgars 8 and 9. Weight was 5 lbs. 11 oz.. Estimated blood loss was 800 amounts. She received 2 units of packed red blood cells She did well postoperatively. I postoperative day #3, had met all discharge criteria and was discharged home in stable condition. DISCHARGE MEDICATIONS: Please see below. ALLERGIES: Please see below. PHYSICAL EXAMINATION ON DISCHARGE: VITAL SIGNS: Please see below. GENERAL: Well-appearing, no acute distress ABDOMINAL EXAMINATION: Soft, appropriately tender. Fundus firm below umbilicus EXTREMITIES: Negative calf tenderness INCISION: Dressed LABORATORY DATA: Please see below. ACTIVITY: As tolerated. DIET: Regular DISCHARGE PLAN: Remain on pelvic rest for 6 weeks. 2. Reports severe pain, heavy vaginal bleeding, fever or incisional issues. 3. Follow up for 6 weeks for visit 4. Removed dressing in 3-4 days DISPOSITION: 01 Home, Self-Care. DISCHARGE CONDITION: Stable. Vital Signs/I&Os Vital Signs Date Time Temp Pulse Resp B/P (MAP) Pulse Ox O2 Delivery O2 Flow Rate FiO2 04/03/19 06:23 98.0 85 18 126/75 (92) 96 Room Air 04/01/19 04:30 2.0 Discharge Medications Scheduled Buprenorphine HCl/Naloxone HCl (Suboxone 8 mg-2 mg Sl Film) 1 Mis Mis, 2 MIS SL DAILY MAX DAILY DOSE OF 2 Ibuprofen (Ibuprofen) 800 Mg Tablet, 800 MG PO Q8H Nicotine (Nicotrol Ns) 10 Mg/Ml Spr, 1 DOSE NA ASDIRECTED, (Reported) 1-2 TIMES PER HOUR NEEDED WHENEVER THE URGE TO SMOKE Quetiapine Fumarate (Seroquel) 300 Mg Tablet, 300 MG PO QPM, (Reported) Scheduled PRN Clonidine HCl (Clonidine HCl) 0.3 Mg Tab, 0.3 MG PO QHS PRN for INSOMNIA, (Reported) Allergies Coded Allergies: Penicillins (Verified Allergy, Intermediate, HIVES , 11/25/18) Sulfa (Sulfonamide Antibiotics) (Verified Allergy, Intermediate, HIVES/SOB, 11/25/18) haloperidol (Verified Adverse Reaction, Intermediate, FACE PARALYSIS , 11/25/18) GEORGINA VICK MD. Apr 03, 2019 19:02
== END 2019-04-03 18:00 | disposition home or self-care (01) | DRG 540 ==
LOC: M LDO 17:56 → M LDI 18:41 → M OBS 04-01 03:09
PROVIDERS: ADMIT Advanced Practice Midwife; ATTEND Specialist
PROC: 30233N1 Transfusion of Nonautologous Red Blood Cells into Peripheral Vein, Percutaneous Approach (ICD-10-PCS; 2019-03-31)
PROC: 10D00Z1 Extraction of Products of Conception, Low, Open Approach (ICD-10-PCS; principal; 2019-03-31 21:00)
DX: O44.13 Complete placenta previa with hemorrhage, third trimester (principal); Z3A.35 35 weeks gestation of pregnancy; Z37.0 Single live birth

== ENCOUNTER → 2020-01-25 | Outpatient (REF) | payer OTHER ==
[~2020-01-25] MED LIST changes: +IBUP80TA PO; +NICO-267 PO; -NICO4GUM31 PO; -TRAZ-163 PO; +TRAZ-257 PO
[2020-01-25 14:20] LABS: BASO % 0.6 % (0.0-1.0); EOS # 0.2 10^3/uL (0.0-0.5); EOS % 2.9 % (0.0-3.0); HEMATOCRIT 38.2 % (36.0-47.0); HEMOGLOBIN 11.6 g/dl (12.0-15.5); LYMPH # 2.4 10^3/uL (1.5-5.0); LYMPH % 35.4 % (24.0-44.0); MEAN CORPUSCULAR HGB CONC 30.4 g/dl (32.0-36.5); MEAN CORPUSCULAR VOLUME 82.3 fl (80.0-96.0); MONO # 0.7 10^3/uL (0.0-0.8); MONO % 9.5 % (0.0-5.0); NEUTROPHILS # 3.5 10^3/uL (1.5-8.5); NEUTROPHILS % 51.3 % (36.0-66.0); PLATELET COUNT, AUTOMATED 256 10^3/uL (150-450); RED BLOOD COUNT 4.64 10^6/uL (4.00-5.40); WHITE BLOOD COUNT 6.8 10^3/uL (4.0-10.0)
[2020-01-25 14:48] LABS: ALBUMIN 3.9 GM/DL (3.2-5.2); ALT/SGPT 23 U/L (12-78); BILIRUBIN,TOTAL 0.2 MG/DL (0.2-1.0); BLOOD UREA NITROGEN 10 MG/DL (7-18); CARBON DIOXIDE LEVEL 29 MEQ/L (21-32); CHLORIDE LEVEL 105 MEQ/L (98-107); CREATININE FOR GFR 0.64 MG/DL (0.55-1.30); GLOMERULAR FILTRATION RATE > 60.0 (>58); GLUCOSE, FASTING 92 MG/DL (70-100); POTASSIUM SERUM 3.8 MEQ/L (3.5-5.1); SODIUM LEVEL 139 MEQ/L (136-145); TOTAL PROTEIN 7.9 GM/DL (6.4-8.2)
[2020-01-25 15:31] LABS: HIV 1&2 SCREEN CENTAUR NEGATIVE (NEGATIVE)
== END ==
LOC: M SFHCPLAZ 11:26
PROVIDERS: ATTEND Internal Medicine Infectious Disease
DX: B18.2 Chronic viral hepatitis C (principal)

== ENCOUNTER → 2020-08-07 | Outpatient (REF) | payer OTHER ==
[~2020-08-07] MED LIST changes: -CLIN150C14 PO; +CLIN150C15 PO; +GABA-283 PO; -GABA-845 PO
[2020-08-07 15:59] LABS: ALBUMIN 3.6 GM/DL (3.2-5.2); ALT/SGPT 34 U/L (12-78); BILIRUBIN,DIRECT < 0.1 MG/DL (0.0-0.2); BILIRUBIN,TOTAL 0.3 MG/DL (0.2-1.0); TOTAL PROTEIN 7.1 GM/DL (6.4-8.2)
[2020-08-07 16:43] LABS: HIV 1&2 SCREEN CENTAUR NEGATIVE (NEGATIVE)
[2020-08-09 13:07] LABS: HEPATITIS C QUANTITATION 1010000 IU/mL (.)
== END ==
LOC: M SFHCPLAZ 13:19
PROVIDERS: ATTEND Internal Medicine Infectious Disease
DX: B18.2 Chronic viral hepatitis C (principal)

== ENCOUNTER → 2020-08-07 | Outpatient (CLI) | payer OTHER ==
[~2020-08-07] MED LIST changes: -GABA-283 PO; +GABA-845 PO
--- NOTE | 2020-08-07 13:54 | REPPI ---
INDICATION: M79.89 FOOT SWELLING COMPARISON: None. TECHNIQUE: AP and lateral views left foot. FINDINGS: Mild hallux valgus deformity with periarticular sclerosis and joint space narrowing at the 1st metatarsophalangeal joint. Remainder of the examination is essentially age-appropriate. IMPRESSION: Mild degenerative changes at the 1st metatarsophalangeal joint.. <Electronically signed by Ej Oconnell > 08/07/20 [id number]
== END ==
LOC: M PLAIMG 13:20
PROVIDERS: ATTEND Internal Medicine Infectious Disease
DX: M19.072 Primary osteoarthritis, left ankle and foot (principal)

== ENCOUNTER → 2021-08-17 | Outpatient (CLI) | payer OTHER ==
[~2021-08-17] MED LIST changes: -CLIN150C15 PO; +CLIN150C17 PO; +GABA-283 PO; -GABA-845 PO
[2021-08-17 14:28] LABS: APPEARANCE, URINE CLOUDY (CLEAR); BACTERIA, URINE AUTO NEGATIVE (NEGATIVE); BILIRUBIN, URINE AUTO NEGATIVE (NEGATIVE); BLOOD, URINE BLOOD NEGATIVE (NEGATIVE); COLOR, URINE AMBER (YELLOW); GLUCOSE, URINE (UA) AUTO NEGATIVE (NEGATIVE); KETONE, URINE AUTO NEGATIVE (NEGATIVE); LEUKOCYTE ESTERASE, URINE AUTO 2+ (NEGATIVE); MUCUS, URINE SMALL (NEGATIVE); NITRITE, URINE AUTO NEGATIVE (NEGATIVE); PROTEIN, URINE AUTO 1+ mg/dL (NEGATIVE); RBC, URINE AUTO 2 /HPF (0-3); SPECIFIC GRAVITY URINE AUTO 1.023 (1.002-1.035); SQUAMOUS EPITHELIAL CELL UR AU 22 /HPF (0-6); WBC, URINE AUTO 7 /HPF (0-3)
[2021-08-17 14:29] LABS: BASO % 0.5 % (0.0-1.0); EOS # 0.2 10^3/uL (0.0-0.5); EOS % 2.2 % (0.0-3.0); HEMATOCRIT 37.1 % (36.0-47.0); HEMOGLOBIN 11.4 g/dl (12.0-15.5); LYMPH # 2.2 10^3/uL (1.5-5.0); LYMPH % 30.6 % (24.0-44.0); MEAN CORPUSCULAR HEMOGLOBIN 25.6 pg (27.0-33.0); MEAN CORPUSCULAR HGB CONC 30.7 g/dl (32.0-36.5); MEAN CORPUSCULAR VOLUME 83.2 fl (80.0-96.0); MONO # 0.5 10^3/uL (0.0-0.8); MONO % 6.3 % (2.0-8.0); NEUTROPHILS # 4.4 10^3/uL (1.5-8.5); NEUTROPHILS % 60.1 % (36.0-66.0); PLATELET COUNT, AUTOMATED 335 10^3/uL (150-450); RED BLOOD COUNT 4.46 10^6/uL (4.00-5.40); WHITE BLOOD COUNT 7.3 10^3/uL (4.0-10.0)
[2021-08-17 14:59] LABS: CHOLESTEROL LEVEL 131 MG/DL (<200); CHOLESTEROL RISK RATIO 3.275 (<5); HDL CHOLESTEROL 40 MG/DL (>40); LDL CHOLESTEROL 71 MG/DL (<100); NON-HDL-C 91 MG/DL; RHEUMATOID FACTOR QUANT < 10.0 IU/ML (<15.0); TRIGLYCERIDES LEVEL 100 MG/DL (<150)
[2021-08-17 14:59] LABS: HEMOGLOBIN A1c 5.4 %
[2021-08-17 15:59] LABS: ERYTHROCYTE SEDIMENTATION RATE 43 mm/hr (0-20)
[2021-08-17 19:53] LABS: HEPATITIS B SURFACE ANTIGEN NEGATIVE (NEGATIVE)
[2021-08-17 20:21] LABS: HEPATITIS B CORE ANTIBODY IGM NEGATIVE (NEGATIVE)
[2021-08-17 20:26] LABS: HEPATITIS C VIRUS ABY INDEX > 11.0 INDEX (<0.8)
[2021-08-19 21:07] LABS: ANTI DOUBLE STRAND-DNA AB 1 IU/mL (0-9); ANTINUCLEAR ANTIBODIES DIRECT Positive (Negative); CYCLIC CITRULLINATED PEPTIDE 2 units (0-19); RNP ANTIBODIES 1.3 AI (0.0-0.9); SJOGREN'S ANTI SS-A <0.2 AI (0.0-0.9); SJOGREN'S ANTI SS-B <0.2 AI (0.0-0.9); SMITH ANTIBODIES <0.2 AI (0.0-0.9)
== END ==
LOC: M RAD 13:22
PROVIDERS: ATTEND Physician Assistant
DX: M25.572 Pain in left ankle and joints of left foot (principal); M54.50 Low back pain, unspecified

== ENCOUNTER → 2021-08-17 | Outpatient (CLI) | payer OTHER ==
[2021-08-17 14:29] LABS: HEMATOCRIT 35.9 % (36.0-47.0); HEMOGLOBIN 11.2 g/dl (12.0-15.5); MEAN CORPUSCULAR HGB CONC 31.2 g/dl (32.0-36.5); MEAN CORPUSCULAR VOLUME 83.3 fl (80.0-96.0); PLATELET COUNT, AUTOMATED 332 10^3/uL (150-450); RED BLOOD COUNT 4.31 10^6/uL (4.00-5.40); WHITE BLOOD COUNT 7.3 10^3/uL (4.0-10.0)
[2021-08-17 14:52] LABS: HCG, SERUM QUALITATIVE NEGATIVE (NEGATIVE)
[2021-08-17 14:53] LABS: ALBUMIN 3.3 GM/DL (3.2-5.2); ALT/SGPT 18 U/L (12-78); BILIRUBIN,TOTAL 0.2 MG/DL (0.2-1.0); BLOOD UREA NITROGEN 12 MG/DL (7-18); CALCIUM LEVEL 9.1 MG/DL (8.5-10.1); CARBON DIOXIDE LEVEL 32 MEQ/L (21-32); CHLORIDE LEVEL 104 MEQ/L (98-107); CREATININE FOR GFR 0.79 MG/DL (0.55-1.30); GLOMERULAR FILTRATION RATE > 60.0 (>58); GLUCOSE, FASTING 109 MG/DL (70-100); POTASSIUM SERUM 4.1 MEQ/L (3.5-5.1); SODIUM LEVEL 140 MEQ/L (136-145); TOTAL PROTEIN 7.4 GM/DL (6.4-8.2)
[2021-08-17 16:30] LABS: GC DNA AMPLIFICATION NEGATIVE (NEGATIVE)
[2021-08-17 19:54] LABS: HEPATITIS B SURFACE ANTIGEN NEGATIVE (NEGATIVE)
[2021-08-17 20:22] LABS: HIV 1&2 SCREEN CENTAUR NEGATIVE (NEGATIVE)
[2021-08-17 20:27] LABS: HEPATITIS C VIRUS ABY INDEX > 11.0 INDEX (<0.8)
== END ==
LOC: M LAB 13:25
PROVIDERS: ATTEND Family Medicine
DX: F15.20 Other stimulant dependence, uncomplicated (principal)

== ENCOUNTER → 2021-12-26 | Outpatient (CLI) | payer OTHER ==
[2021-12-26 15:08] LABS: HEMATOCRIT 35.6 % (36.0-47.0); MEAN CORPUSCULAR HEMOGLOBIN 25.7 pg (27.0-33.0); MEAN CORPUSCULAR HGB CONC 30.9 g/dl (32.0-36.5); MEAN CORPUSCULAR VOLUME 83.2 fl (80.0-96.0); PLATELET COUNT, AUTOMATED 310 10^3/uL (150-450); RED BLOOD COUNT 4.28 10^6/uL (4.00-5.40); WHITE BLOOD COUNT 6.5 10^3/uL (4.0-10.0)
[2021-12-26 15:25] LABS: HEMOGLOBIN A1c 5.7 %
[2021-12-26 15:43] LABS: ALBUMIN 3.2 GM/DL (3.2-5.2); ALT/SGPT 19 U/L (12-78); BILIRUBIN,TOTAL 0.2 MG/DL (0.2-1.0); BLOOD UREA NITROGEN 8 MG/DL (7-18); C REACTIVE PROTEIN QUANTITATIV 1.67 MG/DL (0.00-0.30); CALCIUM LEVEL 8.5 MG/DL (8.5-10.1); CARBON DIOXIDE LEVEL 29 MEQ/L (21-32); CHLORIDE LEVEL 104 MEQ/L (98-107); CREATININE FOR GFR 0.65 MG/DL (0.55-1.30); GLOMERULAR FILTRATION RATE > 60.0 (>58); GLUCOSE, FASTING 121 MG/DL (70-100); POTASSIUM SERUM 4.1 MEQ/L (3.5-5.1); SODIUM LEVEL 137 MEQ/L (136-145); TOTAL PROTEIN 7.3 GM/DL (6.4-8.2); URIC ACID 2.9 MG/DL (2.6-6.0)
[2021-12-26 15:46] LABS: ERYTHROCYTE SEDIMENTATION RATE 40 mm/hr (0-20)
[2021-12-27 12:49] LABS: FERRITIN 45 NG/ML (8-252); IRON (FE) 34 UG/DL (50-170); TOTAL IRON BINDING CAPACITY 308 UG/DL (250-450)
[2021-12-27 13:46] LABS: VITAMIN B12 LEVEL 453 PG/ML (247-911)
== END ==
LOC: M RAD 13:39
PROVIDERS: ATTEND Physician Assistant
DX: M25.561 Pain in right knee (principal); M79.7 Fibromyalgia; M25.461 Effusion, right knee; M17.11 Unilateral primary osteoarthritis, right knee; M47.817 Spondylosis without myelopathy or radiculopathy, lumbosacral region

== ENCOUNTER → 2022-03-14 | Outpatient (CLI) | payer OTHER | LOC: M LAB 14:51 | PROVIDERS: ATTEND Physician Assistant | DX: Z00.8 Encounter for other general examination (principal); M79.7 Fibromyalgia; F32.9 Major depressive disorder, single episode, unspecified ==

== ENCOUNTER → 2022-11-08 | Outpatient (CLI) | payer OTHER ==
[~2022-11-08] MED LIST changes: -GABA-283 PO; +GABA-284 PO
== END ==
LOC: M PLALAB 10:47
PROVIDERS: ATTEND Family Medicine
DX: F11.20 Opioid dependence, uncomplicated (principal); Z53.9 Procedure and treatment not carried out, unspecified reason

== ENCOUNTER → 2022-11-08 | Outpatient (CLI) | payer OTHER | LOC: M PLALAB 10:51 | PROVIDERS: ATTEND Physician Assistant Medical | DX: Z13.6 Encounter for screening for cardiovascular disorders (principal); Z83.3 Family history of diabetes mellitus; E78.2 Mixed hyperlipidemia; R63.5 Abnormal weight gain; E55.9 Vitamin D deficiency, unspecified; Z53.9 Procedure and treatment not carried out, unspecified reason ==

== ENCOUNTER 2022-12-05 13:28 | Emergency (ER) | payer OTHER ==
[~2022-12-05] VITALS: Ht 160 cm; Wt 74.7 kg
[2022-12-05 13:35] VITALS: TEMP 97.8
[2022-12-05 16:04] VITALS: BP 122/69; O2SAT 98
[2022-12-05] MEDS ORDERED: NEOSPORIN OINT 0.9 GM PKT TOP ONE (17:00)
[2022-12-05] MEDS ORDERED: LIDOCAINE 1% MDV 20ML VIAL SC ONE (17:00)
[2022-12-05] MEDS ORDERED: BOOSTRIX VACCINE (TETANUS/DIPHTH/ACEL. PERTUSSIS) 0.5ML SYR IM ONE (17:00)
[2022-12-05] MEDS ORDERED: CEPH500C PO (17:22)
[2022-12-05] MEDS ORDERED: ACETAMINOPHEN 500 MG TAB PO ONE (17:30)
== END 2022-12-05 18:00 | disposition home or self-care (01) ==
LOC: EDBD 13:28 → M ED 13:28
DX: S61.210A Laceration without foreign body of right index finger without damage to nail, initial encounter (principal); S61.212A Laceration without foreign body of right middle finger without damage to nail, initial encounter; Y28.0XXA Contact with sharp glass, undetermined intent, initial encounter; K21.9 Gastro-esophageal reflux disease without esophagitis; J45.909 Unspecified asthma, uncomplicated; F17.200 Nicotine dependence, unspecified, uncomplicated; F19.10 Other psychoactive substance abuse, uncomplicated; Z88.0 Allergy status to penicillin; Z88.2 Allergy status to sulfonamides; Z88.8 Allergy status to other drugs, medicaments and biological substances; Z79.899 Other long term (current) drug therapy; Z23 Encounter for immunization

== ENCOUNTER → 2023-08-13 | Outpatient (CLI) | payer OTHER ==
[~2023-08-13] MED LIST changes: +CEPH500C PO
[2023-08-13 07:51] LABS: HEMOGLOBIN 11.1 g/dl (12.0-15.5); MEAN CORPUSCULAR HEMOGLOBIN 25.1 pg (27.0-33.0); MEAN CORPUSCULAR VOLUME 83.5 fl (80.0-96.0); PLATELET COUNT, AUTOMATED 274 10^3/uL (150-450); RED BLOOD COUNT 4.43 10^6/uL (4.00-5.40); WHITE BLOOD COUNT 6.9 10^3/uL (4.0-10.0)
[2023-08-13 08:11] LABS: ALKALINE PHOSPHATASE 110 U/L (46-116); ALT/SGPT 23 U/L (7.0-40); AST/SGOT 17 U/L (<34); BILIRUBIN,TOTAL 0.2 MG/DL (0.3-1.2); BLOOD UREA NITROGEN 9 MG/DL (9-23); CALCIUM LEVEL 8.3 MG/DL (8.5-10.1); CARBON DIOXIDE LEVEL 30 MMOL/L (20-31); CHLORIDE LEVEL 104 MMOL/L (98-107); CREATININE FOR GFR 0.56 MG/DL (0.55-1.30); GLOMERULAR FILTRATION RATE > 60.0 (>58); GLUCOSE, FASTING 148 MG/DL (60-100); HCG, SERUM QUALITATIVE NEGATIVE (NEGATIVE); POTASSIUM SERUM 3.8 MMOL/L (3.5-5.1); SODIUM LEVEL 140 MMOL/L (136-145); TOTAL PROTEIN 7.1 G/DL (5.7-8.2)
[2023-08-13 08:25] LABS: HEPATITIS B SURFACE ANTIGEN NEGATIVE (NEGATIVE)
[2023-08-13 08:38] LABS: HIV 1&2 SCREEN NEGATIVE (NEGATIVE)
[2023-08-13 08:51] LABS: HEPATITIS C VIRUS ABY INDEX > 11.00 INDEX (<0.8)
[2023-08-13 10:13] LABS: GC DNA AMPLIFICATION NEGATIVE (NEGATIVE)
== END ==
LOC: M LAB 06:45
PROVIDERS: ATTEND Family Medicine
DX: F11.20 Opioid dependence, uncomplicated (principal)

== ENCOUNTER → 2023-12-12 | Outpatient (CLI) | payer OTHER | LOC: M RAD 12:20 | PROVIDERS: ATTEND Physician Assistant Medical | DX: M17.0 Bilateral primary osteoarthritis of knee (principal); M25.561 Pain in right knee; M25.562 Pain in left knee ==

== ENCOUNTER → 2024-04-02 | Outpatient (CLI) | payer OTHER ==
[2024-04-02 11:40] LABS: URIC ACID 3.6 MG/DL (3.1-7.8)
[2024-04-02 11:43] LABS: C REACTIVE PROTEIN QUANTITATIV 2.97 MG/DL (<1.0)
[2024-04-02 11:45] LABS: RHEUMATOID FACTOR QUANT 8.6 IU/ML (<14)
[2024-04-05 16:37] LABS: CYCLIC CITRULLINATED PEPTIDE < 16 UNITS (<20)
[2024-04-06 10:22] LABS: ANA SCREEN, IFA NEGATIVE (NEGATIVE)
== END ==
LOC: M LAB 10:11
PROVIDERS: ATTEND Nurse Practitioner Family
DX: M79.7 Fibromyalgia (principal)

== ENCOUNTER → 2024-05-19 | Outpatient (CLI) | payer OTHER ==
[2024-05-19 07:31] LABS: BASO % 0.6 % (0.0-1.0); EOS # 0.2 10^3/uL (0.0-0.5); HEMATOCRIT 36.9 % (36.0-47.0); HEMOGLOBIN 11.3 g/dl (12.0-15.5); LYMPH # 2.2 10^3/uL (1.5-5.0); LYMPH % 30.7 % (24.0-44.0); MEAN CORPUSCULAR HEMOGLOBIN 24.4 pg (27.0-33.0); MEAN CORPUSCULAR HGB CONC 30.6 g/dl (32.0-36.5); MEAN CORPUSCULAR VOLUME 79.5 fl (80.0-96.0); MONO # 0.6 10^3/uL (0.0-0.8); NEUTROPHILS # 4.2 10^3/uL (1.5-8.5); NEUTROPHILS % 57.6 % (36.0-66.0); PLATELET COUNT, AUTOMATED 341 10^3/uL (150-450); RED BLOOD COUNT 4.64 10^6/uL (4.00-5.40); WHITE BLOOD COUNT 7.3 10^3/uL (4.0-10.0)
[2024-05-19 07:36] LABS: ERYTHROCYTE SEDIMENTATION RATE 56 mm/hr (0-20)
== END ==
LOC: M RAD 06:40
PROVIDERS: ATTEND Emergency Medicine
DX: M25.561 Pain in right knee (principal); R70.0 Elevated erythrocyte sedimentation rate; R22.33 Localized swelling, mass and lump, upper limb, bilateral

== ENCOUNTER 2024-07-10 12:01 | Inpatient (IN) | payer OTHER ==
[~2024-07-10] VITALS: Ht 154.9 cm; Wt 98.4 kg
[2024-07-10] VITALS (11 sets, daily range): BP systolic 124–146; BP diastolic 56–62; TEMP 99.8–101.8; O2SAT 91–97
[~2024-07-10 12:01] MED LIST changes: -PREG50CA PO; +PREG50CA87 PO
[2024-07-10 13:24] LABS: VENOUS BASE EXCESS -0.8 (-2.0-2.0); VENOUS HCO3 25.8 MMOL/L (23.0-27.0); VENOUS O2 SATURATION 49.4 % (60.0-80.0); VENOUS PARTIAL PRESSURE CO2 50.6 mmHg (38.0-50.0); VENOUS PARTIAL PRESSURE O2 28.6 mmHg (30.0-50.0); VENOUS PH 7.325 UNITS (7.330-7.430); VENOUS STANDARD HCO3 22.8 MMOL/L; VENOUS TOTAL CO2 27.3 MMOL/L (24.0-28.0)
[2024-07-10 13:33] LABS: HEMATOCRIT 35.7 % (36.0-47.0); HEMOGLOBIN 11.5 g/dl (12.0-15.5); MEAN CORPUSCULAR HEMOGLOBIN 23.5 pg (27.0-33.0); MEAN CORPUSCULAR HGB CONC 32.2 g/dl (32.0-36.5); MEAN CORPUSCULAR VOLUME 72.9 fl (80.0-96.0); PLATELET COUNT, AUTOMATED 461 10^3/uL (150-450); WHITE BLOOD COUNT 28.3 10^3/uL (4.0-10.0)
[2024-07-10] MEDS ORDERED: HYDR-3363 PO (13:41)
[2024-07-10] MEDS ORDERED: OLAN15TA69 PO (13:41)
[2024-07-10] MEDS ORDERED: NYST-38 SS (13:41)
[2024-07-10] MEDS ORDERED: DULO30CA9 PO (13:41)
[2024-07-10] MEDS ORDERED: LYRI200C PO (13:41)
[2024-07-10] MEDS ORDERED: IBUP-1022 PO (13:41)
[2024-07-10] MEDS ORDERED: DOXY100C3 PO (13:41)
[2024-07-10] MEDS ORDERED: MULT400T10 PO (13:41)
[2024-07-10] MEDS: VANCOMYCIN HCL 2,000 MG, VIAL MATE ADAPTER 1 EACH in NS 500 ML IV ONE (13:44)
[2024-07-10] MEDS: NS 0.9% IV ONE (13:45)
[2024-07-10] MEDS ORDERED: HOME MED LIST COMPLETE! XX SCH (13:45)
[2024-07-10] MEDS: [UNRECOGNIZED DRUG - OTHER] IV ONE (13:45)
[2024-07-10] MEDS: NICOTINE 21MG/24HR 1 EA TRANSDERMAL TD ONE (13:46)
[2024-07-10 13:53] LABS: INR 1.04; PARTIAL THROMBOPLASTIN TIME 28.8 SECONDS (24.8-34.2); PROTHROMBIN TIME 13.9 SECONDS (12.5-14.5)
[2024-07-10 13:54] LABS: ALBUMIN 1.9 G/DL (3.2-5.2); ALKALINE PHOSPHATASE 242 U/L (35-104); ALT/SGPT 39 U/L (7.0-40); AST/SGOT 38 U/L (<34); BILIRUBIN,DIRECT 0.1 MG/DL (<0.4); BILIRUBIN,TOTAL 0.3 MG/DL (0.3-1.2); BLOOD UREA NITROGEN 28 MG/DL (9-23); CARBON DIOXIDE LEVEL 27 MMOL/L (20-31); CHLORIDE LEVEL 97 MMOL/L (98-107); CREATININE FOR GFR 0.79 MG/DL (0.55-1.30); GLOMERULAR FILTRATION RATE > 90.0 (>58); GLUCOSE, FASTING 199 MG/DL (60-100); POTASSIUM SERUM 5.6 MMOL/L (3.5-5.1); SODIUM LEVEL 131 MMOL/L (136-145)
[2024-07-10 14:05] LABS: LYMPHOCYTES 9 % (16-44); MONOCYTES 9 % (0-5); NEUTROPHILS 82 % (28-66); PLATELET ESTIMATE INCREASED (NORMAL); PROCALCITONIN 1.05 ng/ml
[2024-07-10 14:06] LABS: MICROCYTOSIS 2+
[2024-07-10 14:07] LABS: ANISOCYTOSIS 2+
[2024-07-10 14:50] LABS: ERYTHROCYTE SEDIMENTATION RATE > 130 mm/hr (0-20)
[2024-07-10 15:09] LABS: C REACTIVE PROTEIN QUANTITATIV 21.56 MG/DL (<1.0)
[2024-07-10] MEDS ORDERED: CEFEPIME HCL 2 GM in DEXTROSE 5% (D5W) ADV/MINI-BAG 50 ML IV SCH (15:40)
[2024-07-10] MEDS: DEXTROSE 50% 50ML SYRINGE IV STA (16:55)
[2024-07-10] MEDS: HumuLIN R (REGULAR) INSULIN (NovoLIN R) **100U/ML** PER UNIT IV STA (16:55)
[2024-07-10] MEDS: ACETAMINOPHEN 325 MG TAB PO PRN (17:23)
[2024-07-10] MEDS: SOD POLYSTYRENE SULFONATE SUSP 15GM 60ML UD PO ONE (17:35)
[2024-07-10] MEDS: CEFEPIME HCL 2 GM in DEXTROSE 5% (D5W) ADV/MINI-BAG 50 ML IV SCH (18:06)
[2024-07-10 18:25] LABS: BLOOD UREA NITROGEN 25 MG/DL (9-23); CALCIUM LEVEL 7.3 MG/DL (8.5-10.1); CARBON DIOXIDE LEVEL 24 MMOL/L (20-31); CHLORIDE LEVEL 100 MMOL/L (98-107); CREATININE FOR GFR 0.73 MG/DL (0.55-1.30); GLOMERULAR FILTRATION RATE > 90.0 (>58); GLUCOSE, FASTING 89 MG/DL (60-100); POTASSIUM SERUM 5.2 MMOL/L (3.5-5.1); SODIUM LEVEL 132 MMOL/L (136-145)
[2024-07-10] MEDS ORDERED: ACETAMINOPHEN *IV* 1,000 MG in IV 1 EA IV ONE (20:00)
[2024-07-10] MEDS: PREGABALIN 100 MG CAP PO SCH (21:10)
[2024-07-10] MEDS: VANCOMYCIN HCL 750 MG, VIAL MATE ADAPTER 1 EACH in NS 250 ML IV SCH (21:10)
[2024-07-10] MEDS: OLANZapine 5 MG TAB PO SCH (21:10)
[2024-07-10] MEDS: NYSTATIN 500,000U/5ML SUSP UDC SS SCH (21:10)
[2024-07-11] VITALS (23 sets, daily range): BP systolic 100–133; BP diastolic 51–64; TEMP 97.9–100.3; O2SAT 90–98
[2024-07-11 08:02] LABS: BASO # 0.1 10^3/uL (0.0-0.2); BASO % 0.3 % (0.0-1.0); EOS # 0.1 10^3/uL (0.0-0.5); EOS % 0.5 % (0.0-3.0); HEMATOCRIT 30.7 % (36.0-47.0); HEMOGLOBIN 9.9 g/dl (12.0-15.5); LYMPH # 2.4 10^3/uL (1.5-5.0); LYMPH % 11.2 % (24.0-44.0); MEAN CORPUSCULAR HEMOGLOBIN 23.5 pg (27.0-33.0); MEAN CORPUSCULAR HGB CONC 32.2 g/dl (32.0-36.5); MEAN CORPUSCULAR VOLUME 72.7 fl (80.0-96.0); MONO # 1.1 10^3/uL (0.0-0.8); MONO % 5.3 % (2.0-8.0); NEUTROPHILS # 15.8 10^3/uL (1.5-8.5); PLATELET COUNT, AUTOMATED 389 10^3/uL (150-450); RED BLOOD COUNT 4.22 10^6/uL (4.00-5.40); WHITE BLOOD COUNT 21.1 10^3/uL (4.0-10.0)
[2024-07-11 08:28] LABS: BLOOD UREA NITROGEN 17 MG/DL (9-23); CALCIUM LEVEL 7.5 MG/DL (8.5-10.1); CARBON DIOXIDE LEVEL 25 MMOL/L (20-31); CHLORIDE LEVEL 102 MMOL/L (98-107); CREATININE FOR GFR 0.69 MG/DL (0.55-1.30); GLOMERULAR FILTRATION RATE > 90.0 (>58); GLUCOSE, FASTING 151 MG/DL (60-100); MAGNESIUM LEVEL 1.6 MG/DL (1.8-2.4); POTASSIUM SERUM 4.9 MMOL/L (3.5-5.1); SODIUM LEVEL 136 MMOL/L (136-145)
[2024-07-11 08:30] LABS: HEMOGLOBIN A1c 6.1 % (4.0-6.0)
[2024-07-11] MEDS ORDERED: GLUCAGON INJ 1MG VIAL SC PRN (09:20)
[2024-07-11] MEDS ORDERED: DEXTROSE 50% 50ML SYRINGE IV PRN (09:20)
[2024-07-11] MEDS ORDERED: GLUCOSE 4 GM CHEW PO PRN (09:20)
[2024-07-11] MEDS: METHADONE 10MG TAB PO SCH (09:40)
[2024-07-11] MEDS: SENOKOT S TAB PO SCH (09:41)
[2024-07-11] MEDS: PANTOPRAZOLE 40MG TAB PO SCH (09:41)
[2024-07-11] MEDS: NICOTINE 21MG/24HR 1 EA TRANSDERMAL TD SCH (09:42)
[2024-07-11] MEDS: ENOXAPARIN 40MG/0.4ML SYRINGE (J1650 PER 10MG) SC SCH (09:43)
[2024-07-11] MEDS: INSULIN LISPRO (NovoLOG) PER UNIT SC SCH ×2 (12:54→20:25)
[2024-07-11] MEDS: MAALOX 30 ML SUSP *UDC PO PRN (18:22)
[2024-07-11] MEDS: CALCIUM CARBONATE 500 MG CHEW U/D PO PRN (21:00)
[2024-07-12] VITALS (17 sets, daily range): BP systolic 112–138; BP diastolic 59–75; TEMP 96.6–100.7; O2SAT 90–100
[2024-07-12 05:55] LABS: BASO # 0.1 10^3/uL (0.0-0.2); BASO % 0.5 % (0.0-1.0); EOS # 0.7 10^3/uL (0.0-0.5); EOS % 4.2 % (0.0-3.0); HEMOGLOBIN 9.5 g/dl (12.0-15.5); LYMPH # 2.7 10^3/uL (1.5-5.0); LYMPH % 15.6 % (24.0-44.0); MEAN CORPUSCULAR HEMOGLOBIN 23.3 pg (27.0-33.0); MEAN CORPUSCULAR HGB CONC 31.7 g/dl (32.0-36.5); MEAN CORPUSCULAR VOLUME 73.5 fl (80.0-96.0); MONO # 1.2 10^3/uL (0.0-0.8); NEUTROPHILS # 11.3 10^3/uL (1.5-8.5); NEUTROPHILS % 64.4 % (36.0-66.0); PLATELET COUNT, AUTOMATED 367 10^3/uL (150-450); RED BLOOD COUNT 4.08 10^6/uL (4.00-5.40); WHITE BLOOD COUNT 17.5 10^3/uL (4.0-10.0)
[2024-07-12 06:05] LABS: BLOOD UREA NITROGEN 16 MG/DL (9-23); CALCIUM LEVEL 7.4 MG/DL (8.5-10.1); CARBON DIOXIDE LEVEL 26 MMOL/L (20-31); CHLORIDE LEVEL 104 MMOL/L (98-107); CREATININE FOR GFR 0.79 MG/DL (0.55-1.30); GLOMERULAR FILTRATION RATE > 90.0 (>58); GLUCOSE, FASTING 166 MG/DL (60-100); MAGNESIUM LEVEL 1.6 MG/DL (1.8-2.4); POTASSIUM SERUM 4.2 MMOL/L (3.5-5.1); SODIUM LEVEL 139 MMOL/L (136-145)
[2024-07-12 06:18] LABS: C REACTIVE PROTEIN QUANTITATIV 14.01 MG/DL (<1.0)
[2024-07-12] MEDS: MAG SULF 1GM/100ML (MAG RUN) 1 GM in IV 1 EA IV SCH (08:22)
[2024-07-12] MEDS: PREGABALIN 100 MG CAP PO SCH (18:06)
[2024-07-13] VITALS (31 sets, daily range): BP systolic 107–136; BP diastolic 58–67; TEMP 98.9–103.3; O2SAT 88–99
[2024-07-13 06:11] LABS: HEMATOCRIT 27.9 % (36.0-47.0); HEMOGLOBIN 8.8 g/dl (12.0-15.5); MEAN CORPUSCULAR HEMOGLOBIN 23.3 pg (27.0-33.0); MEAN CORPUSCULAR HGB CONC 31.5 g/dl (32.0-36.5); MEAN CORPUSCULAR VOLUME 73.8 fl (80.0-96.0); PLATELET COUNT, AUTOMATED 414 10^3/uL (150-450); RED BLOOD COUNT 3.78 10^6/uL (4.00-5.40); WHITE BLOOD COUNT 12.9 10^3/uL (4.0-10.0)
[2024-07-13 06:24] LABS: VANCOMYCIN LEVEL TROUGH 9.3 UG/ML (10.0-20.0)
[2024-07-13 06:25] LABS: BLOOD UREA NITROGEN 11 MG/DL (9-23); C REACTIVE PROTEIN QUANTITATIV 8.08 MG/DL (<1.0); CALCIUM LEVEL 7.4 MG/DL (8.5-10.1); CARBON DIOXIDE LEVEL 26 MMOL/L (20-31); CHLORIDE LEVEL 103 MMOL/L (98-107); CREATININE FOR GFR 0.58 MG/DL (0.55-1.30); GLOMERULAR FILTRATION RATE > 90.0 (>58); GLUCOSE, FASTING 259 MG/DL (60-100); MAGNESIUM LEVEL 1.5 MG/DL (1.8-2.4); POTASSIUM SERUM 4.4 MMOL/L (3.5-5.1); SODIUM LEVEL 136 MMOL/L (136-145)
[2024-07-13 06:33] LABS: EOSINOPHILS 2 % (0-3); LYMPHOCYTES 26 % (16-44); METAMYELOCYTES 2 % (0-0); MONOCYTES 8 % (0-5); NEUTROPHILS 60 % (28-66)
[2024-07-13 06:34] LABS: ANISOCYTOSIS 2+; MICROCYTOSIS 2+
[2024-07-13 06:35] LABS: HYPOCHROMASIA 1+; PLATELET ESTIMATE NORMAL (NORMAL)
[2024-07-13] MEDS: cefTRIAXone SOD 2 GM in DEXTROSE 5% (D5W) ADV/MINI-BAG 50 ML IV SCH (12:10)
[2024-07-13] MEDS ORDERED: VANCOMYCIN HCL 1,000 MG, VIAL MATE ADAPTER 1 EACH in NS 250 ML IV SCH (14:00)
[2024-07-14] VITALS (22 sets, daily range): BP systolic 108–132; BP diastolic 51–72; PULSE 98; TEMP 97.5–100.7; O2SAT 89–100
[2024-07-14 06:18] LABS: BASO % 0.3 % (0.0-1.0); EOS # 0.1 10^3/uL (0.0-0.5); EOS % 1.1 % (0.0-3.0); HEMATOCRIT 25.8 % (36.0-47.0); HEMOGLOBIN 8.2 g/dl (12.0-15.5); LYMPH # 2.4 10^3/uL (1.5-5.0); LYMPH % 19.4 % (24.0-44.0); MEAN CORPUSCULAR HEMOGLOBIN 23.6 pg (27.0-33.0); MEAN CORPUSCULAR HGB CONC 31.8 g/dl (32.0-36.5); MEAN CORPUSCULAR VOLUME 74.4 fl (80.0-96.0); MONO # 0.9 10^3/uL (0.0-0.8); MONO % 7.4 % (2.0-8.0); NEUTROPHILS # 8.5 10^3/uL (1.5-8.5); NEUTROPHILS % 69.4 % (36.0-66.0); PLATELET COUNT, AUTOMATED 397 10^3/uL (150-450); RED BLOOD COUNT 3.47 10^6/uL (4.00-5.40); WHITE BLOOD COUNT 12.2 10^3/uL (4.0-10.0)
[2024-07-14 06:33] LABS: BLOOD UREA NITROGEN 8 MG/DL (9-23); CALCIUM LEVEL 7.4 MG/DL (8.5-10.1); CARBON DIOXIDE LEVEL 29 MMOL/L (20-31); CHLORIDE LEVEL 102 MMOL/L (98-107); CREATININE FOR GFR 0.53 MG/DL (0.55-1.30); GLOMERULAR FILTRATION RATE > 90.0 (>58); GLUCOSE, FASTING 208 MG/DL (60-100); MAGNESIUM LEVEL 1.6 MG/DL (1.8-2.4); SODIUM LEVEL 140 MMOL/L (136-145)
[2024-07-14] MEDS ORDERED: CALCIUM CARBONATE 500 MG CHEW U/D PO PRN (08:00)
[2024-07-14] MEDS: KETOROLAC 30 MG/ML 1ML VIAL IV ONE (09:45)
[2024-07-14] MEDS: LanTUS (INSULIN GLARGINE INJ) 1 UNITS/0.01 ML SC SCH (10:12)
[2024-07-14] MEDS: CALCIUM GLUCONATE 1,000 MG in DEXTROSE 5% (D5W) MINI-BAG PLU 100 ML IV ONE (10:14)
[2024-07-14] MEDS: ACETAMINOPHEN 500 MG TAB PO SCH (12:25)
[2024-07-15] VITALS: BP 108/51; PULSE 98; TEMP 97.5; O2SAT 93
[2024-07-15 04:00] VITALS: BP 108/51; PULSE 98; TEMP 97.5; O2SAT 93
[2024-07-15 04:13] VITALS: BP 110/55; TEMP 98.3; O2SAT 98
[2024-07-15 07:50] VITALS: BP 115/56; TEMP 100.1; O2SAT 94
[2024-07-15] MEDS: DULoxetine 30MG CAPSULE PO SCH (09:00)
[2024-07-15 09:17] LABS: BASO # 0.1 10^3/uL (0.0-0.2); BASO % 0.3 % (0.0-1.0); EOS # 0.2 10^3/uL (0.0-0.5); HEMATOCRIT 28.5 % (36.0-47.0); LYMPH % 19.1 % (24.0-44.0); MEAN CORPUSCULAR HEMOGLOBIN 23.4 pg (27.0-33.0); MEAN CORPUSCULAR HGB CONC 31.6 g/dl (32.0-36.5); MEAN CORPUSCULAR VOLUME 74.2 fl (80.0-96.0); MONO # 0.8 10^3/uL (0.0-0.8); MONO % 5.4 % (2.0-8.0); NEUTROPHILS # 11.3 10^3/uL (1.5-8.5); PLATELET COUNT, AUTOMATED 472 10^3/uL (150-450); RED BLOOD COUNT 3.84 10^6/uL (4.00-5.40); WHITE BLOOD COUNT 15.5 10^3/uL (4.0-10.0)
[2024-07-15 09:25] LABS: BLOOD UREA NITROGEN 8 MG/DL (9-23); CALCIUM LEVEL 7.6 MG/DL (8.5-10.1); CARBON DIOXIDE LEVEL 30 MMOL/L (20-31); CHLORIDE LEVEL 99 MMOL/L (98-107); CREATININE FOR GFR 0.58 MG/DL (0.55-1.30); GLOMERULAR FILTRATION RATE > 90.0 (>58); GLUCOSE, FASTING 98 MG/DL (60-100); MAGNESIUM LEVEL 1.6 MG/DL (1.8-2.4); POTASSIUM SERUM 4.4 MMOL/L (3.5-5.1); SODIUM LEVEL 135 MMOL/L (136-145)
[2024-07-15] MEDS: DULoxetine 30MG CAPSULE PO ONE (12:30)
[2024-07-15] MEDS: MAG SULF 1GM/100ML (MAG RUN) 1 GM in IV 1 EA IV SCH (12:31)
[2024-07-15 13:26] LABS: C REACTIVE PROTEIN QUANTITATIV 7.99 MG/DL (<1.0)
[2024-07-15 13:32] LABS: PROCALCITONIN 0.27 ng/ml
[2024-07-15 13:46] LABS: ERYTHROCYTE SEDIMENTATION RATE > 130 mm/hr (0-20)
[2024-07-15] MEDS: metOLazone 5 MG TAB PO ONE (14:37)
[2024-07-15] MEDS: FUROSEMIDE 40MG/4ML VIAL IV ONE (14:37)
[2024-07-15] MEDS: MIDODRINE 5 MG TAB PO ONE (14:37)
[2024-07-15 16:15] VITALS: BP 119/58; TEMP 100.6; O2SAT 93
[2024-07-15 19:44] VITALS: BP 104/54; TEMP 100.7; O2SAT 90
[2024-07-15] MEDS ORDERED: ISOVUE-370 76% 100ML VIAL As Ordered ONE (23:52)
[2024-07-16] MEDS: LevoFLOXacin IV 750 MG in IV 1 EA IV SCH (00:27)
[2024-07-16 03:42] VITALS: BP 106/54; TEMP 98.5; O2SAT 92
[2024-07-16 05:07] LABS: BASO # 0.1 10^3/uL (0.0-0.2); BASO % 0.4 % (0.0-1.0); EOS # 0.2 10^3/uL (0.0-0.5); EOS % 1.6 % (0.0-3.0); HEMATOCRIT 27.5 % (36.0-47.0); HEMOGLOBIN 8.7 g/dl (12.0-15.5); LYMPH # 2.1 10^3/uL (1.5-5.0); MEAN CORPUSCULAR HGB CONC 31.6 g/dl (32.0-36.5); MEAN CORPUSCULAR VOLUME 75.8 fl (80.0-96.0); MONO # 0.7 10^3/uL (0.0-0.8); MONO % 6.2 % (2.0-8.0); NEUTROPHILS # 8.7 10^3/uL (1.5-8.5); PLATELET COUNT, AUTOMATED 459 10^3/uL (150-450); RED BLOOD COUNT 3.63 10^6/uL (4.00-5.40); WHITE BLOOD COUNT 11.9 10^3/uL (4.0-10.0)
[2024-07-16 05:33] LABS: BLOOD UREA NITROGEN 10 MG/DL (9-23); CALCIUM LEVEL 7.4 MG/DL (8.5-10.1); CARBON DIOXIDE LEVEL 35 MMOL/L (20-31); CHLORIDE LEVEL 91 MMOL/L (98-107); CREATININE FOR GFR 0.61 MG/DL (0.55-1.30); GLOMERULAR FILTRATION RATE > 90.0 (>58); GLUCOSE, FASTING 238 MG/DL (60-100); MAGNESIUM LEVEL 1.7 MG/DL (1.8-2.4); POTASSIUM SERUM 3.6 MMOL/L (3.5-5.1); SODIUM LEVEL 134 MMOL/L (136-145)
[2024-07-16 07:45] VITALS: BP 109/52; TEMP 98.7; O2SAT 92
[2024-07-16] MEDS: MIDODRINE 5 MG TAB PO SCH (09:52)
[2024-07-16] MEDS: MAG SULF 1GM/100ML (MAG RUN) 1 GM in IV 1 EA IV SCH (09:54)
[2024-07-16 17:15] VITALS: BP 115/77; TEMP 97.5; O2SAT 93
[2024-07-16 20:00] VITALS: BP 105/61; TEMP 97.3; O2SAT 98
[2024-07-16] MEDS: LevoFLOXacin 750 MG TABLET PO SCH (21:46)
[2024-07-17] VITALS (7 sets, daily range): BP systolic 98–116; BP diastolic 53–68; TEMP 97.7–98.2; O2SAT 87–96
[2024-07-17 06:08] LABS: BASO # 0.1 10^3/uL (0.0-0.2); BASO % 0.5 % (0.0-1.0); EOS # 0.2 10^3/uL (0.0-0.5); EOS % 1.5 % (0.0-3.0); HEMOGLOBIN 8.8 g/dl (12.0-15.5); LYMPH # 2.2 10^3/uL (1.5-5.0); LYMPH % 18.8 % (24.0-44.0); MEAN CORPUSCULAR HEMOGLOBIN 23.8 pg (27.0-33.0); MEAN CORPUSCULAR HGB CONC 31.4 g/dl (32.0-36.5); MEAN CORPUSCULAR VOLUME 75.7 fl (80.0-96.0); MONO # 0.7 10^3/uL (0.0-0.8); MONO % 6.3 % (2.0-8.0); NEUTROPHILS # 8.6 10^3/uL (1.5-8.5); NEUTROPHILS % 72.5 % (36.0-66.0); PLATELET COUNT, AUTOMATED 517 10^3/uL (150-450); WHITE BLOOD COUNT 11.8 10^3/uL (4.0-10.0)
[2024-07-17 06:42] LABS: BLOOD UREA NITROGEN 10 MG/DL (9-23); CALCIUM LEVEL 7.5 MG/DL (8.5-10.1); CARBON DIOXIDE LEVEL 38 MMOL/L (20-31); CHLORIDE LEVEL 89 MMOL/L (98-107); CREATININE FOR GFR 0.56 MG/DL (0.55-1.30); GLOMERULAR FILTRATION RATE > 90.0 (>58); GLUCOSE, FASTING 105 MG/DL (60-100); MAGNESIUM LEVEL 1.8 MG/DL (1.8-2.4); POTASSIUM SERUM 3.7 MMOL/L (3.5-5.1); SODIUM LEVEL 133 MMOL/L (136-145)
[2024-07-17] MEDS: MAG SULF 1GM/100ML (MAG RUN) 1 GM in IV 1 EA IV ONE (08:36)
[2024-07-17] MEDS: POTASSIUM CHLORIDE 10MEQ SR TABLET PO ONE (08:39)
[2024-07-17] MEDS: LR 1,000 ML IV ONE ×2 (08:41→13:59)
[2024-07-17] MEDS: CALCIUM GLUCONATE 1,000 MG in DEXTROSE 5% (D5W) MINI-BAG PLU 100 ML IV ONE (10:02)
[2024-07-17] MEDS: MUPIROCIN 2% OINT 22 GM TUBE TOP SCH (13:10)
[2024-07-17] MEDS: VANICREAM MOISTURIZING SKIN CREAM 113GM TUBE TOP SCH (13:10)
[2024-07-17] MEDS: NALOXONE INJ 0.4MG/1ML VIAL IV STA (13:42)
[2024-07-17 15:06] LABS: AMPHETAMINES LEVEL URINE NEGATIVE (NEGATIVE); BARBITURATES URINE NEGATIVE (NEGATIVE); BENZODIAZEPINES URINE NEGATIVE (NEGATIVE); CANNABINOIDS URINE NEGATIVE (NEGATIVE); COCAINE METABOLITE URINE NEGATIVE (NEGATIVE); PHENCYCLIDINE URINE NEGATIVE (NEGATIVE)
[2024-07-17 15:13] LABS: METHADONE URINE POSITIVE (NEGATIVE); OPIATES URINE POSITIVE (NEGATIVE)
[2024-07-17] MEDS: PREGABALIN 75 MG CAP PO SCH (21:13)
[2024-07-18] VITALS (10 sets, daily range): BP systolic 92–106; BP diastolic 54–60; TEMP 97.3–98.3; O2SAT 90–96
[2024-07-18 06:24] LABS: BASO % 0.4 % (0.0-1.0); EOS # 0.1 10^3/uL (0.0-0.5); EOS % 1.3 % (0.0-3.0); HEMATOCRIT 27.4 % (36.0-47.0); HEMOGLOBIN 8.5 g/dl (12.0-15.5); MEAN CORPUSCULAR HEMOGLOBIN 23.9 pg (27.0-33.0); MEAN CORPUSCULAR VOLUME 77.2 fl (80.0-96.0); MONO # 0.7 10^3/uL (0.0-0.8); MONO % 7.2 % (2.0-8.0); NEUTROPHILS # 6.8 10^3/uL (1.5-8.5); NEUTROPHILS % 69.6 % (36.0-66.0); PLATELET COUNT, AUTOMATED 547 10^3/uL (150-450); RED BLOOD COUNT 3.55 10^6/uL (4.00-5.40); WHITE BLOOD COUNT 9.7 10^3/uL (4.0-10.0)
[2024-07-18 06:46] LABS: BLOOD UREA NITROGEN 10 MG/DL (9-23); CARBON DIOXIDE LEVEL 38 MMOL/L (20-31); CHLORIDE LEVEL 93 MMOL/L (98-107); GLOMERULAR FILTRATION RATE > 90.0 (>58); GLUCOSE, FASTING 104 MG/DL (60-100); POTASSIUM SERUM 3.5 MMOL/L (3.5-5.1); SODIUM LEVEL 139 MMOL/L (136-145)
[2024-07-18] MEDS: MOM 30ML SUSPENSION UDC PO PRN (08:47)
[2024-07-18] MEDS: METHADONE 10MG TAB PO SCH (08:48)
[2024-07-18] MEDS: PREGABALIN 100 MG CAP PO SCH (09:00)
[2024-07-19] VITALS: BP 92/53; TEMP 98.9
[2024-07-19 02:34] VITALS: O2SAT 94
[2024-07-19 05:14] VITALS: BP 90/52; TEMP 97.5; O2SAT 90
[2024-07-19 10:49] VITALS: BP 111/68
[2024-07-19 13:56] LABS: HEMATOCRIT 29.2 % (36.0-47.0); HEMOGLOBIN 8.7 g/dl (12.0-15.5); MEAN CORPUSCULAR HEMOGLOBIN 22.9 pg (27.0-33.0); MEAN CORPUSCULAR HGB CONC 29.8 g/dl (32.0-36.5); MEAN CORPUSCULAR VOLUME 76.8 fl (80.0-96.0); PLATELET COUNT, AUTOMATED 678 10^3/uL (150-450); WHITE BLOOD COUNT 9.5 10^3/uL (4.0-10.0)
[2024-07-19 14:24] LABS: ALBUMIN 1.5 G/DL (3.2-5.2); ALKALINE PHOSPHATASE 92 U/L (35-104); ALT/SGPT 14 U/L (7.0-40); AST/SGOT 18 U/L (<34); BILIRUBIN,TOTAL < 0.2 MG/DL (0.3-1.2); BLOOD UREA NITROGEN 9 MG/DL (9-23); CALCIUM LEVEL 7.9 MG/DL (8.5-10.1); CARBON DIOXIDE LEVEL 36 MMOL/L (20-31); CHLORIDE LEVEL 93 MMOL/L (98-107); CREATININE FOR GFR 0.53 MG/DL (0.55-1.30); GLOMERULAR FILTRATION RATE > 90.0 (>58); GLUCOSE, FASTING 114 MG/DL (60-100); POTASSIUM SERUM 3.3 MMOL/L (3.5-5.1); SODIUM LEVEL 137 MMOL/L (136-145); TOTAL PROTEIN 8.1 G/DL (5.7-8.2)
[2024-07-19 14:28] LABS: PROCALCITONIN 0.15 ng/ml
[2024-07-19 14:42] LABS: ATYPICAL LYMPH 3 % (0-5); MONOCYTES 3 % (0-5)
[2024-07-19 14:43] LABS: LYMPHOCYTES 23 % (16-44); NEUTROPHILS 70 % (28-66); PLATELET ESTIMATE INCREASED (NORMAL)
[2024-07-19 14:44] LABS: ANISOCYTOSIS 2+; OVALOCYTES 1+
[2024-07-19 14:45] LABS: MICROCYTOSIS 1+
[2024-07-19 14:48] LABS: C REACTIVE PROTEIN QUANTITATIV 18.09 MG/DL (<1.0)
[2024-07-19 15:47] LABS: ERYTHROCYTE SEDIMENTATION RATE > 130 mm/hr (0-20)
[2024-07-19 20:17] VITALS: BP 101/60; TEMP 97.5; O2SAT 91; O2SAT 97
[2024-07-20 04:08] VITALS: BP 104/62; TEMP 98.1; O2SAT 88; O2SAT 95
[2024-07-20 04:20] VITALS: O2SAT 83
[2024-07-20 04:21] VITALS: O2SAT 90
[2024-07-20 06:42] LABS: BLOOD UREA NITROGEN 10 MG/DL (9-23); CALCIUM LEVEL 7.6 MG/DL (8.5-10.1); CARBON DIOXIDE LEVEL 34 MMOL/L (20-31); CHLORIDE LEVEL 93 MMOL/L (98-107); CREATININE FOR GFR 0.58 MG/DL (0.55-1.30); GLOMERULAR FILTRATION RATE > 90.0 (>58); GLUCOSE, FASTING 180 MG/DL (60-100); POTASSIUM SERUM 3.6 MMOL/L (3.5-5.1); SODIUM LEVEL 134 MMOL/L (136-145)
[2024-07-20 06:51] LABS: HEMATOCRIT 25.3 % (36.0-47.0); HEMOGLOBIN 7.6 g/dl (12.0-15.5); MEAN CORPUSCULAR VOLUME 76.7 fl (80.0-96.0); PLATELET COUNT, AUTOMATED 567 10^3/uL (150-450); WHITE BLOOD COUNT 8.9 10^3/uL (4.0-10.0)
[2024-07-20 07:46] LABS: LYMPHOCYTES 22 % (16-44); MONOCYTES 4 % (0-5); NEUTROPHILS 74 % (28-66)
[2024-07-20 07:47] LABS: ANISOCYTOSIS 2+; PLATELET ESTIMATE INCREASED (NORMAL)
[2024-07-20 12:00] VITALS: BP 107/63; TEMP 97.7; O2SAT 92
[2024-07-20 20:55] VITALS: BP 102/54; TEMP 97.9; O2SAT 91
[2024-07-21 03:57] VITALS: BP 115/70; TEMP 98.4; O2SAT 91
[2024-07-21 06:41] LABS: BASO # 0.1 10^3/uL (0.0-0.2); BASO % 0.6 % (0.0-1.0); EOS # 0.2 10^3/uL (0.0-0.5); EOS % 1.4 % (0.0-3.0); HEMATOCRIT 26.4 % (36.0-47.0); HEMOGLOBIN 8.1 g/dl (12.0-15.5); LYMPH # 2.5 10^3/uL (1.5-5.0); LYMPH % 24.3 % (24.0-44.0); MEAN CORPUSCULAR HEMOGLOBIN 23.6 pg (27.0-33.0); MEAN CORPUSCULAR HGB CONC 30.7 g/dl (32.0-36.5); MONO # 0.8 10^3/uL (0.0-0.8); MONO % 7.7 % (2.0-8.0); NEUTROPHILS # 6.8 10^3/uL (1.5-8.5); NEUTROPHILS % 65.4 % (36.0-66.0); PLATELET COUNT, AUTOMATED 653 10^3/uL (150-450); RED BLOOD COUNT 3.43 10^6/uL (4.00-5.40); WHITE BLOOD COUNT 10.4 10^3/uL (4.0-10.0)
[2024-07-21 07:02] LABS: BLOOD UREA NITROGEN 8 MG/DL (9-23); CALCIUM LEVEL 7.7 MG/DL (8.5-10.1); CARBON DIOXIDE LEVEL 34 MMOL/L (20-31); CHLORIDE LEVEL 93 MMOL/L (98-107); CREATININE FOR GFR 0.58 MG/DL (0.55-1.30); GLOMERULAR FILTRATION RATE > 90.0 (>58); GLUCOSE, FASTING 93 MG/DL (60-100); SODIUM LEVEL 134 MMOL/L (136-145)
[2024-07-21 12:00] VITALS: BP 104/63; TEMP 97.5; O2SAT 90
[2024-07-22 04:00] VITALS: BP 97/53; TEMP 97.2; O2SAT 92
[2024-07-22 06:18] LABS: BASO % 0.5 % (0.0-1.0); EOS # 0.2 10^3/uL (0.0-0.5); EOS % 2.4 % (0.0-3.0); HEMATOCRIT 24.6 % (36.0-47.0); HEMOGLOBIN 7.5 g/dl (12.0-15.5); LYMPH # 2.1 10^3/uL (1.5-5.0); LYMPH % 25.4 % (24.0-44.0); MEAN CORPUSCULAR HEMOGLOBIN 23.5 pg (27.0-33.0); MEAN CORPUSCULAR HGB CONC 30.5 g/dl (32.0-36.5); MEAN CORPUSCULAR VOLUME 77.1 fl (80.0-96.0); MONO # 0.8 10^3/uL (0.0-0.8); NEUTROPHILS # 5.2 10^3/uL (1.5-8.5); NEUTROPHILS % 62.1 % (36.0-66.0); PLATELET COUNT, AUTOMATED 615 10^3/uL (150-450); RED BLOOD COUNT 3.19 10^6/uL (4.00-5.40); WHITE BLOOD COUNT 8.3 10^3/uL (4.0-10.0)
[2024-07-22 06:45] LABS: BLOOD UREA NITROGEN 8 MG/DL (9-23); CALCIUM LEVEL 7.5 MG/DL (8.5-10.1); CARBON DIOXIDE LEVEL 34 MMOL/L (20-31); CHLORIDE LEVEL 97 MMOL/L (98-107); CREATININE FOR GFR 0.54 MG/DL (0.55-1.30); GLOMERULAR FILTRATION RATE > 90.0 (>58); GLUCOSE, FASTING 99 MG/DL (60-100); POTASSIUM SERUM 3.7 MMOL/L (3.5-5.1); SODIUM LEVEL 138 MMOL/L (136-145)
[2024-07-22] MEDS: TORSEMIDE 20 MG TAB PO SCH (10:23)
[2024-07-23 03:45] VITALS: BP 90/45; TEMP 97.3; O2SAT 90
[2024-07-23 06:35] LABS: BASO # 0.1 10^3/uL (0.0-0.2); BASO % 0.7 % (0.0-1.0); EOS # 0.2 10^3/uL (0.0-0.5); HEMATOCRIT 26.3 % (36.0-47.0); HEMOGLOBIN 7.8 g/dl (12.0-15.5); LYMPH % 26.2 % (24.0-44.0); MEAN CORPUSCULAR HEMOGLOBIN 23.1 pg (27.0-33.0); MEAN CORPUSCULAR HGB CONC 29.7 g/dl (32.0-36.5); MEAN CORPUSCULAR VOLUME 77.8 fl (80.0-96.0); MONO # 0.7 10^3/uL (0.0-0.8); MONO % 9.7 % (2.0-8.0); NEUTROPHILS # 4.5 10^3/uL (1.5-8.5); PLATELET COUNT, AUTOMATED 613 10^3/uL (150-450); RED BLOOD COUNT 3.38 10^6/uL (4.00-5.40); WHITE BLOOD COUNT 7.4 10^3/uL (4.0-10.0)
[2024-07-23 07:02] LABS: BLOOD UREA NITROGEN 9 MG/DL (9-23); CALCIUM LEVEL 7.6 MG/DL (8.5-10.1); CARBON DIOXIDE LEVEL 36 MMOL/L (20-31); CHLORIDE LEVEL 98 MMOL/L (98-107); CREATININE FOR GFR 0.59 MG/DL (0.55-1.30); GLOMERULAR FILTRATION RATE > 90.0 (>58); GLUCOSE, FASTING 60 MG/DL (60-100); SODIUM LEVEL 141 MMOL/L (136-145)
[2024-07-23 13:36] VITALS: BP 102/57
[2024-07-23 16:51] VITALS: BP 101/55
[2024-07-23 20:00] VITALS: BP 105/65; TEMP 97.2; O2SAT 92
[2024-07-24 03:58] VITALS: BP 103/64; TEMP 97.2; O2SAT 92
[2024-07-24 07:03] LABS: BLOOD UREA NITROGEN 9 MG/DL (9-23); CALCIUM LEVEL 7.9 MG/DL (8.5-10.1); CARBON DIOXIDE LEVEL 32 MMOL/L (20-31); CHLORIDE LEVEL 100 MMOL/L (98-107); CREATININE FOR GFR 0.64 MG/DL (0.55-1.30); GLOMERULAR FILTRATION RATE > 90.0 (>58); GLUCOSE, FASTING 134 MG/DL (60-100); POTASSIUM SERUM 3.8 MMOL/L (3.5-5.1); SODIUM LEVEL 139 MMOL/L (136-145)
[2024-07-24 07:14] LABS: HEMATOCRIT 27.1 % (36.0-47.0); HEMOGLOBIN 8.1 g/dl (12.0-15.5); MEAN CORPUSCULAR HEMOGLOBIN 23.3 pg (27.0-33.0); MEAN CORPUSCULAR HGB CONC 29.9 g/dl (32.0-36.5); MEAN CORPUSCULAR VOLUME 78.1 fl (80.0-96.0); PLATELET COUNT, AUTOMATED 677 10^3/uL (150-450); RED BLOOD COUNT 3.47 10^6/uL (4.00-5.40); WHITE BLOOD COUNT 7.6 10^3/uL (4.0-10.0)
[2024-07-24 07:36] LABS: ANISOCYTOSIS 2+; BASOPHILS 1 % (0-1); EOSINOPHILS 5 % (0-3); LYMPHOCYTES 30 % (16-44); MONOCYTES 6 % (0-5); NEUTROPHILS 58 % (28-66); PLATELET ESTIMATE INCREASED (NORMAL); POIKILOCYTOSIS 1+; POLYCHROMASIA 1+
[2024-07-24 08:46] VITALS: BP 98/59
[2024-07-24 12:35] VITALS: BP 101/65
[2024-07-24 15:56] VITALS: BP 107/49
[2024-07-24 19:43] VITALS: BP 115/60; TEMP 97.3; O2SAT 97
[2024-07-25 04:00] VITALS: BP 117/53; TEMP 97.2; O2SAT 92
[2024-07-25 06:44] LABS: BASO # 0.1 10^3/uL (0.0-0.2); EOS # 0.3 10^3/uL (0.0-0.5); EOS % 4.3 % (0.0-3.0); HEMATOCRIT 29.2 % (36.0-47.0); HEMOGLOBIN 8.6 g/dl (12.0-15.5); LYMPH # 2.9 10^3/uL (1.5-5.0); LYMPH % 36.3 % (24.0-44.0); MEAN CORPUSCULAR HEMOGLOBIN 22.8 pg (27.0-33.0); MEAN CORPUSCULAR HGB CONC 29.5 g/dl (32.0-36.5); MEAN CORPUSCULAR VOLUME 77.2 fl (80.0-96.0); MONO # 0.7 10^3/uL (0.0-0.8); MONO % 9.2 % (2.0-8.0); NEUTROPHILS # 3.9 10^3/uL (1.5-8.5); NEUTROPHILS % 48.7 % (36.0-66.0); PLATELET COUNT, AUTOMATED 776 10^3/uL (150-450); RED BLOOD COUNT 3.78 10^6/uL (4.00-5.40); WHITE BLOOD COUNT 7.9 10^3/uL (4.0-10.0)
[2024-07-25 07:12] LABS: BLOOD UREA NITROGEN 9 MG/DL (9-23); CALCIUM LEVEL 8.1 MG/DL (8.5-10.1); CARBON DIOXIDE LEVEL 32 MMOL/L (20-31); CHLORIDE LEVEL 100 MMOL/L (98-107); CREATININE FOR GFR 0.64 MG/DL (0.55-1.30); GLOMERULAR FILTRATION RATE > 90.0 (>58); GLUCOSE, FASTING 50 MG/DL (60-100); POTASSIUM SERUM 4.4 MMOL/L (3.5-5.1); SODIUM LEVEL 140 MMOL/L (136-145)
[2024-07-26 03:56] VITALS: BP 131/72; TEMP 97.3; O2SAT 96
[2024-07-26 05:29] LABS: BLOOD UREA NITROGEN 9 MG/DL (9-23); CALCIUM LEVEL 8.1 MG/DL (8.5-10.1); CARBON DIOXIDE LEVEL 32 MMOL/L (20-31); CHLORIDE LEVEL 101 MMOL/L (98-107); CREATININE FOR GFR 0.62 MG/DL (0.55-1.30); GLOMERULAR FILTRATION RATE > 90.0 (>58); GLUCOSE, FASTING 80 MG/DL (60-100); POTASSIUM SERUM 4.6 MMOL/L (3.5-5.1); SODIUM LEVEL 141 MMOL/L (136-145)
[2024-07-26 05:36] LABS: BASO # 0.1 10^3/uL (0.0-0.2); BASO % 0.9 % (0.0-1.0); EOS # 0.3 10^3/uL (0.0-0.5); EOS % 4.1 % (0.0-3.0); HEMATOCRIT 29.7 % (36.0-47.0); HEMOGLOBIN 8.7 g/dl (12.0-15.5); LYMPH # 2.6 10^3/uL (1.5-5.0); LYMPH % 32.6 % (24.0-44.0); MEAN CORPUSCULAR HEMOGLOBIN 22.9 pg (27.0-33.0); MEAN CORPUSCULAR HGB CONC 29.3 g/dl (32.0-36.5); MEAN CORPUSCULAR VOLUME 78.2 fl (80.0-96.0); MONO % 12.7 % (2.0-8.0); NEUTROPHILS # 3.9 10^3/uL (1.5-8.5); NEUTROPHILS % 48.9 % (36.0-66.0); PLATELET COUNT, AUTOMATED 725 10^3/uL (150-450)
[2024-07-26 16:33] VITALS: BP 111/54
[2024-07-26] MEDS: NICOTINE 21MG/24HR 1 EA TRANSDERMAL TD ONE (16:35)
[2024-07-27 04:02] VITALS: BP 111/59; TEMP 97.5; O2SAT 93
[2024-07-28 03:13] VITALS: BP 137/92; TEMP 97.5; O2SAT 95
[2024-07-28 09:14] VITALS: BP 114/79
[2024-07-28 12:35] VITALS: BP 113/78
[2024-07-28 17:27] VITALS: BP 92/55
[2024-07-29 04:01] VITALS: BP 95/55; TEMP 97.2; O2SAT 94
[2024-07-29 13:17] VITALS: BP 109/58
[2024-07-29 15:51] VITALS: BP 107/59
[2024-07-30 05:03] VITALS: BP 111/65; TEMP 97.3; O2SAT 90
[2024-07-30 08:11] VITALS: BP 104/67
[2024-07-30 12:00] VITALS: BP 114/65; TEMP 97.3; O2SAT 97
[2024-07-30 12:24] VITALS: BP 113/64
[2024-07-30 15:57] VITALS: BP 103/68
[2024-07-31 05:52] VITALS: BP 122/75; TEMP 97.7; O2SAT 93
[2024-07-31 20:07] VITALS: BP 123/65; TEMP 98.2; O2SAT 95
[2024-08-01 05:33] VITALS: BP 109/59; TEMP 97.2; O2SAT 90
[2024-08-01 12:51] VITALS: BP 109/72
[2024-08-02 03:54] VITALS: BP 110/71; TEMP 97.7; O2SAT 91
[2024-08-02 09:15] VITALS: BP 108/70
[2024-08-02 13:02] VITALS: BP 107/68
[2024-08-02 17:21] VITALS: BP 108/71
[2024-08-03 03:56] VITALS: BP 113/70; TEMP 97.5; O2SAT 92
[2024-08-03 17:05] VITALS: BP 107/56
[2024-08-04 04:53] VITALS: BP 125/75; TEMP 97.7; O2SAT 92
[2024-08-04 08:10] VITALS: BP 118/73
[2024-08-04 12:46] VITALS: BP 107/69
[2024-08-04 15:47] VITALS: BP 103/62
[2024-08-04] MEDS: KETOROLAC 30 MG/ML 1ML VIAL IM ONE (23:04)
[2024-08-05 03:38] VITALS: BP 105/61; TEMP 97.2; O2SAT 97
[2024-08-05 08:33] VITALS: BP 103/65; TEMP 97.9; O2SAT 98
[2024-08-05] MEDS ORDERED: LIDOCAINE 5% (LIDODERM) PATCH TD PRN (21:45)
[2024-08-05] MEDS: KETOROLAC 30 MG/ML 1ML VIAL IM ONE (22:07)
[2024-08-05 23:14] LABS: HEMATOCRIT 30.2 % (36.0-47.0); HEMOGLOBIN 9.1 g/dl (12.0-15.5); MEAN CORPUSCULAR HEMOGLOBIN 23.3 pg (27.0-33.0); MEAN CORPUSCULAR HGB CONC 30.1 g/dl (32.0-36.5); MEAN CORPUSCULAR VOLUME 77.2 fl (80.0-96.0); PLATELET COUNT, AUTOMATED 510 10^3/uL (150-450); RED BLOOD COUNT 3.91 10^6/uL (4.00-5.40); WHITE BLOOD COUNT 9.2 10^3/uL (4.0-10.0)
[2024-08-05 23:30] LABS: ERYTHROCYTE SEDIMENTATION RATE > 130 mm/hr (0-20)
[2024-08-05 23:52] LABS: CK-MB VALUE MASS < 1.0 NG/ML (<3.6)
[2024-08-05 23:54] LABS: ALBUMIN 2.1 G/DL (3.2-5.2); ALKALINE PHOSPHATASE 119 U/L (35-104); ALT/SGPT 10 U/L (7.0-40); AST/SGOT 20 U/L (<34); BILIRUBIN,TOTAL < 0.2 MG/DL (0.3-1.2); BLOOD UREA NITROGEN 15 MG/DL (9-23); C REACTIVE PROTEIN QUANTITATIV 2.71 MG/DL (<1.0); CALCIUM LEVEL 8.4 MG/DL (8.5-10.1); CARBON DIOXIDE LEVEL 31 MMOL/L (20-31); CHLORIDE LEVEL 101 MMOL/L (98-107); CPK CREATINE PHOSPHOKINASE 44 U/L (34-145); GLOMERULAR FILTRATION RATE > 90.0 (>58); GLUCOSE, FASTING 112 MG/DL (60-100); MB/CK RELATIVE INDEX 2.27 (< OR =4); SODIUM LEVEL 137 MMOL/L (136-145); TOTAL PROTEIN 9.4 G/DL (5.7-8.2)
[2024-08-06 00:36] LABS: ATYPICAL LYMPH 18 % (0-5); BASOPHILS 1 % (0-1); EOSINOPHILS 1 % (0-3); LYMPHOCYTES 19 % (16-44); MONOCYTES 2 % (0-5); NEUTROPHILS 59 % (28-66)
[2024-08-06 00:40] LABS: HYPOCHROMASIA 1+; MICROCYTOSIS 1+; OVALOCYTES 1+; PLATELET ESTIMATE INCREASED (NORMAL); SPHEROCYTES 1+
[2024-08-06] MEDS: IBUPROFEN 800 MG TAB PO PRN (03:50)
[2024-08-06 04:11] VITALS: BP 113/78; TEMP 97.7; O2SAT 94
[2024-08-06 08:13] VITALS: BP 115/77
[2024-08-06 12:29] VITALS: BP 113/78
[2024-08-06 16:11] VITALS: BP 105/63
[2024-08-06] MEDS: IBUPROFEN 400MG TAB PO PRN (16:11)
[2024-08-07 03:25] VITALS: BP 107/61; TEMP 97; O2SAT 96
[2024-08-07 11:20] LABS: BASO # 0.1 10^3/uL (0.0-0.2); BASO % 0.7 % (0.0-1.0); EOS # 0.2 10^3/uL (0.0-0.5); EOS % 2.7 % (0.0-3.0); HEMATOCRIT 30.5 % (36.0-47.0); HEMOGLOBIN 8.8 g/dl (12.0-15.5); LYMPH # 2.9 10^3/uL (1.5-5.0); LYMPH % 33.3 % (24.0-44.0); MEAN CORPUSCULAR HEMOGLOBIN 22.4 pg (27.0-33.0); MEAN CORPUSCULAR HGB CONC 28.9 g/dl (32.0-36.5); MEAN CORPUSCULAR VOLUME 77.8 fl (80.0-96.0); MONO # 0.8 10^3/uL (0.0-0.8); NEUTROPHILS # 4.7 10^3/uL (1.5-8.5); NEUTROPHILS % 54.1 % (36.0-66.0); PLATELET COUNT, AUTOMATED 455 10^3/uL (150-450); RED BLOOD COUNT 3.92 10^6/uL (4.00-5.40); WHITE BLOOD COUNT 8.6 10^3/uL (4.0-10.0)
[2024-08-07 11:56] VITALS: BP 116/71
[2024-08-07 15:45] VITALS: BP 108/63
[2024-08-08 03:32] VITALS: BP 107/75; TEMP 97.2; O2SAT 97
[2024-08-08 08:42] VITALS: BP 108/72
[2024-08-08 11:46] VITALS: BP 117/76
[2024-08-08 16:00] VITALS: BP 102/71
[2024-08-09 00:48] VITALS: BP 113/71; TEMP 97.3; O2SAT 91
[2024-08-09 12:45] VITALS: BP 125/76
[2024-08-10 00:30] VITALS: BP 117/79; TEMP 97.3; O2SAT 94
[2024-08-10] MEDS ORDERED: MIDO5TA PO (07:58)
[2024-08-10] MEDS ORDERED: NICO21PAT TD (07:58)
[2024-08-10 08:50] VITALS: BP 118/77
[2024-08-10 10:40] VITALS: BP 138/82
[2024-08-16] MEDS ORDERED: LEVO75TAB PO (07:22)
[2024-08-16] MEDS ORDERED: CEFD1CAP9 PO (16:07)
[2024-08-16] MEDS ORDERED: DOXY-440 PO (16:07)
== END 2024-08-10 12:06 | disposition home or self-care (01) | DRG 720 ==
LOC: M ED 12:01 → EDBD 12:01 → M ED INP 15:36 → EEVIPCON 15:36 → M PCU 17:06 → M MSPAV 07-16 17:07
PROVIDERS: ADMIT Student in an Organized Health Care Education/Training Program; ATTEND Student in an Organized Health Care Education/Training Program
PROC: B246ZZZ Ultrasonography of Right and Left Heart (ICD-10-PCS; principal; 2024-07-11)
PROC: 0S9C3ZX Drainage of Right Knee Joint, Percutaneous Approach, Diagnostic (ICD-10-PCS; 2024-07-16)
DX: A41.01 Sepsis due to Methicillin susceptible Staphylococcus aureus (principal); E87.1 Hypo-osmolality and hyponatremia; L97.118 Non-pressure chronic ulcer of right thigh with other specified severity; L03.115 Cellulitis of right lower limb; F11.10 Opioid abuse, uncomplicated; D50.9 Iron deficiency anemia, unspecified; L97.928 Non-pressure chronic ulcer of unspecified part of left lower leg with other specified severity; L97.918 Non-pressure chronic ulcer of unspecified part of right lower leg with other specified severity; E87.5 Hyperkalemia; E66.01 Morbid (severe) obesity due to excess calories; E83.42 Hypomagnesemia; L97.318 Non-pressure chronic ulcer of right ankle with other specified severity; L97.128 Non-pressure chronic ulcer of left thigh with other specified severity; E83.51 Hypocalcemia; E88.09 Other disorders of plasma-protein metabolism, not elsewhere classified; Z68.41 Body mass index [BMI] 40.0-44.9, adult; L03.116 Cellulitis of left lower limb; J45.909 Unspecified asthma, uncomplicated; K21.9 Gastro-esophageal reflux disease without esophagitis; F41.9 Anxiety disorder, unspecified; F40.240 Claustrophobia; N73.9 Female pelvic inflammatory disease, unspecified; I89.0 Lymphedema, not elsewhere classified; I87.2 Venous insufficiency (chronic) (peripheral); B95.0 Streptococcus, group A, as the cause of diseases classified elsewhere; M85.88 Other specified disorders of bone density and structure, other site; F17.210 Nicotine dependence, cigarettes, uncomplicated; F15.10 Other stimulant abuse, uncomplicated; R53.81 Other malaise; M47.812 Spondylosis without myelopathy or radiculopathy, cervical region; M17.11 Unilateral primary osteoarthritis, right knee; R73.03 Prediabetes; Z79.899 Other long term (current) drug therapy; Z86.14 Personal history of Methicillin resistant Staphylococcus aureus infection; Z88.0 Allergy status to penicillin; Z88.2 Allergy status to sulfonamides; Z88.8 Allergy status to other drugs, medicaments and biological substances

== ENCOUNTER 2025-01-26 20:20 | Emergency (ER) | payer OTHER ==
[~2025-01-26 20:20] MED LIST changes: +CEFD1CAP9 PO; +CLIN-250 PO; +DOXY-440 PO; +DOXY100C3 PO; +DULO30CA9 PO; +HYDR-3363 PO; -IBUP-1022 PO; -IBUP1TAB6 PO; +IBUP600T42 PO; +LEVO75TAB PO; +MIDO5TA PO; +MULT400T10 PO; +NICO21PAT TD; +NYST-38 SS; +OLAN15TA69 PO; +SFHIBU600 PO
[2025-01-26 21:13] LABS: VENOUS BASE EXCESS 1.6 (-2.0-2.0); VENOUS HCO3 25.7 MMOL/L (23.0-27.0); VENOUS O2 SATURATION 98.1 % (60.0-80.0); VENOUS PARTIAL PRESSURE CO2 38.4 mmHg (38.0-50.0); VENOUS PARTIAL PRESSURE O2 113.2 mmHg (30.0-50.0); VENOUS PH 7.443 UNITS (7.330-7.430); VENOUS STANDARD HCO3 25.9 MMOL/L; VENOUS TOTAL CO2 26.9 MMOL/L (24.0-28.0)
[2025-01-26 21:20] LABS: BASO # 0.0 10^3/uL (0.0-0.2); BASO % 0.4 % (0.0-1.0); EOS # 0.2 10^3/uL (0.0-0.5); EOS % 2.2 % (0.0-3.0); LYMPH # 1.9 10^3/uL (1.5-5.0); LYMPH % 23.0 % (24.0-44.0); MONO # 0.6 10^3/uL (0.0-0.8); MONO % 7.0 % (2.0-8.0); NEUTROPHILS # 5.5 10^3/uL (1.5-8.5); NEUTROPHILS % 67.3 % (36.0-66.0); PLATELET COUNT, AUTOMATED 294 10^3/uL (150-450)
[2025-01-26 21:41] LABS: ETHYL ALCOHOL (ETHANOL) < 0.003 % (0.000-0.010)
[2025-01-26 21:43] LABS: ALT/SGPT 28 U/L (7.0-40); AST/SGOT 37 U/L (<34); CALCIUM LEVEL 8.9 MG/DL (8.5-10.1); CARBON DIOXIDE LEVEL 30 MMOL/L (20-31); CHLORIDE LEVEL 107 MMOL/L (98-107); CREATININE FOR GFR 0.74 MG/DL (0.55-1.30); GLOMERULAR FILTRATION RATE > 90.0 (>58); POTASSIUM SERUM 4.7 MMOL/L (3.5-5.1); SALICYLATE LEVEL < 3.0 MG/DL (<30); SODIUM LEVEL 145 MMOL/L (136-145)
[2025-01-26] MEDS: NS (Normal Saline) 0.9% 1,000 ML IV ONE (21:45)
[2025-01-26 21:54] LABS: OSMOLALITY SERUM 307 MOSM/KG (275-295)
[2025-01-27 00:40] LABS: KETONE, URINE AUTO RFX NEGATIVE (NEGATIVE); MUCUS, URINE RFX SMALL (NEGATIVE); NITRITE, URINE AUTO RFX NEGATIVE (NEGATIVE); RBC, URINE AUTO RFX 1 /HPF (0-3); SQUAM EPITHELIAL CELL UR AURFX 2 /HPF (0-6); WBC, URINE AUTO RFX 4 /HPF (0-3)
[2025-01-27 00:48] LABS: LEUKOCYTE ESTERASE UR AUTO RFX 1+ (NEGATIVE)
[2025-01-27 00:57] LABS: BARBITURATES URINE NEGATIVE (NEGATIVE); BENZODIAZEPINES URINE NEGATIVE (NEGATIVE); COCAINE METABOLITE URINE NEGATIVE (NEGATIVE); OPIATES URINE NEGATIVE (NEGATIVE); PHENCYCLIDINE URINE NEGATIVE (NEGATIVE)
[2025-01-27 01:01] LABS: AMPHETAMINES LEVEL URINE POSITIVE (NEGATIVE); CANNABINOIDS URINE POSITIVE (NEGATIVE); METHADONE URINE POSITIVE (NEGATIVE)
[2025-01-27 06:10] VITALS: BP 149/66; TEMP 97.4; O2SAT 93
== END 2025-01-27 06:12 | disposition home or self-care (01) ==
LOC: M ED 20:20
DX: F19.10 Other psychoactive substance abuse, uncomplicated (principal); K21.9 Gastro-esophageal reflux disease without esophagitis; J45.909 Unspecified asthma, uncomplicated; F11.10 Opioid abuse, uncomplicated; Z86.19 Personal history of other infectious and parasitic diseases; Z79.899 Other long term (current) drug therapy; Z88.0 Allergy status to penicillin; Z88.2 Allergy status to sulfonamides; Z88.8 Allergy status to other drugs, medicaments and biological substances

== ENCOUNTER 2025-03-01 11:42 | Inpatient (IN) | payer OTHER ==
[~2025-03-01] VITALS: Ht 154.9 cm; Wt 97.9 kg
[2025-03-01] MEDS: [UNRECOGNIZED DRUG - OTHER] IV STA (13:24)
[2025-03-01] MEDS: NS 0.9% IV STA (13:24)
[2025-03-01] MEDS: ACETAMINOPHEN 325 MG TAB PO ONE (13:24)
[2025-03-01 13:33] LABS: PLATELET COUNT, AUTOMATED 346 10^3/uL (150-450)
[2025-03-01 13:50] LABS: ETHYL ALCOHOL (ETHANOL) 0.004 % (0.000-0.010)
[2025-03-01 13:53] LABS: ALT/SGPT 27 U/L (7.0-40); AST/SGOT 50 U/L (<34); CALCIUM LEVEL 9.2 MG/DL (8.5-10.1); CARBON DIOXIDE LEVEL 26 MMOL/L (20-31); CHLORIDE LEVEL 99 MMOL/L (98-107); CK-MB VALUE MASS 6.5 NG/ML (<3.6); CREATININE FOR GFR 1.35 MG/DL (0.55-1.30); GLOMERULAR FILTRATION RATE 48.8 (>58); POTASSIUM SERUM 4.0 MMOL/L (3.5-5.1); SODIUM LEVEL 137 MMOL/L (136-145)
[2025-03-01] MEDS ORDERED: OLAN1TAB20 PO (14:01)
[2025-03-01] MEDS ORDERED: HOME MED LIST COMPLETE! XX SCH (14:05)
[2025-03-01 14:28] LABS: BASOPHILS 1 % (0-1); EOSINOPHILS 1 % (0-3); LYMPHOCYTES 15 % (16-44); METAMYELOCYTES 1 % (0-0); MONOCYTES 1 % (0-5); NEUTROPHILS 63 % (28-66)
[2025-03-01 14:35] LABS: CPK CREATINE PHOSPHOKINASE 1364 U/L (34-145); MB/CK RELATIVE INDEX 0.47 (< OR =4)
[2025-03-01 15:10] LABS: KETONE, URINE AUTO RFX TRACE mg/dL (NEGATIVE); MUCUS, URINE RFX SMALL (NEGATIVE); NITRITE, URINE AUTO RFX NEGATIVE (NEGATIVE); RBC, URINE AUTO RFX 2 /HPF (0-3); SQUAM EPITHELIAL CELL UR AURFX 1 /HPF (0-6); WBC, URINE AUTO RFX 5 /HPF (0-3)
[2025-03-01 15:16] LABS: PLATELET ESTIMATE NORMAL (NORMAL)
[2025-03-01 15:31] LABS: BARBITURATES URINE NEGATIVE (NEGATIVE); BENZODIAZEPINES URINE NEGATIVE (NEGATIVE); COCAINE METABOLITE URINE NEGATIVE (NEGATIVE); OPIATES URINE NEGATIVE (NEGATIVE); PHENCYCLIDINE URINE NEGATIVE (NEGATIVE)
[2025-03-01 15:32] LABS: AMPHETAMINES LEVEL URINE POSITIVE (NEGATIVE); CANNABINOIDS URINE POSITIVE (NEGATIVE); METHADONE URINE POSITIVE (NEGATIVE)
[2025-03-01 15:36] LABS: LEUKOCYTE ESTERASE UR AUTO RFX TRACE (NEGATIVE)
[2025-03-01] MEDS ORDERED: VANCOMYCIN HCL 2,000 MG, VIAL MATE ADAPTER 1 EACH in NS 500 ML IV SCH (16:05)
[2025-03-01 16:26] LABS: ANTI-STREPTOLYSIN O QUANT > 2000.0 IU/ML (<195); C REACTIVE PROTEIN QUANTITATIV 17.39 MG/DL (<1.0)
[2025-03-01] MEDS: MEROPENEM 2 GM, VIAL MATE ADAPTER 1 EACH in NS 100 ML IV ONE (17:38)
[2025-03-01 18:29] LABS: INR 1.19
[2025-03-01] MEDS: NS (Normal Saline) 0.9% 1,000 ML IV ONE (20:00)
[2025-03-01] MEDS: VANCOMYCIN HCL 2,000 MG, VIAL MATE ADAPTER 1 EACH in NS 500 ML IV ONE (20:01)
[2025-03-01] MEDS: OLANZapine 10 MG TAB PO SCH (21:23)
[2025-03-01] MEDS: ACETAMINOPHEN 500 MG TAB PO STA (21:34)
[2025-03-01 21:50] VITALS: BP 116/58; TEMP 98.9; O2SAT 93
[2025-03-01] MEDS: HEPARIN SOD 5000 UNITS/ML 1 ML VIAL/SYRINGE SC SCH (22:06)
[2025-03-01] MEDS: NS (Normal Saline) 0.9% 1,000 ML IV SCH (23:02)
[2025-03-01 23:27] VITALS: BP 116/55; TEMP 98.7; O2SAT 95
[2025-03-02] VITALS (7 sets, daily range): BP systolic 91–119; BP diastolic 51–80; TEMP 97.4–98.9; O2SAT 91–99
[2025-03-02] MEDS: VANCOMYCIN HCL 1,500 MG, VIAL MATE ADAPTER 1 EACH in NS 500 ML IV SCH (03:10)
[2025-03-02] MEDS: ACETAMINOPHEN 500 MG TAB PO PRN (03:10)
[2025-03-02 06:04] LABS: PLATELET COUNT, AUTOMATED 230 10^3/uL (150-450)
[2025-03-02 06:43] LABS: ALT/SGPT 52 U/L (7.0-40); AST/SGOT 191 U/L (<34); CALCIUM LEVEL 7.3 MG/DL (8.5-10.1); CARBON DIOXIDE LEVEL 25 MMOL/L (20-31); CHLORIDE LEVEL 104 MMOL/L (98-107); CREATININE FOR GFR 0.96 MG/DL (0.55-1.30); GLOMERULAR FILTRATION RATE 73.4 (>58); POTASSIUM SERUM 3.4 MMOL/L (3.5-5.1); SODIUM LEVEL 140 MMOL/L (136-145)
[2025-03-02 07:04] LABS: C REACTIVE PROTEIN QUANTITATIV 29.09 MG/DL (<1.0)
[2025-03-02] MEDS: METHADONE 10 MG TAB PO SCH (08:39)
[2025-03-02] MEDS: CLINDAMYCIN 900 MG in IV 1 EA IV SCH (11:35)
[2025-03-02 11:44] LABS: VANCOMYCIN RANDOM 20.1 UG/ML
[2025-03-02] MEDS: POTASSIUM CHLORIDE 10MEQ SR TABLET PO ONE (13:35)
[2025-03-02] MEDS ORDERED: ISOVUE-370 76% 100 ML VIAL As Ordered ONE (13:53)
[2025-03-02] MEDS: CEFEPIME HCL 2 GM in DEXTROSE 5% (D5W) ADV/MINI-BAG 50 ML IV SCH (14:38)
[2025-03-02] MEDS: VANCOMYCIN HCL 750 MG, VIAL MATE ADAPTER 1 EACH in NS 250 ML IV SCH (16:19)
[2025-03-03 03:54] VITALS: BP 118/60; TEMP 97.9; O2SAT 92
[2025-03-03 08:30] VITALS: BP 115/53; TEMP 97.8; O2SAT 93
[2025-03-03] MEDS ORDERED: METHADONE 10 MG TAB PO SCH (09:00)
[2025-03-03] MEDS: METHADONE 10 MG TAB PO SCH (10:33)
[2025-03-03 10:42] LABS: BASO # 0.0 10^3/uL (0.0-0.2); BASO % 0.3 % (0.0-1.0); EOS # 0.0 10^3/uL (0.0-0.5); EOS % 0.1 % (0.0-3.0); LYMPH # 1.0 10^3/uL (1.5-5.0); LYMPH % 8.4 % (24.0-44.0); MONO # 0.3 10^3/uL (0.0-0.8); MONO % 2.7 % (2.0-8.0); NEUTROPHILS # 10.1 10^3/uL (1.5-8.5); NEUTROPHILS % 87.9 % (36.0-66.0); PLATELET COUNT, AUTOMATED 217 10^3/uL (150-450)
[2025-03-03 11:10] LABS: VANCOMYCIN LEVEL TROUGH 7.8 UG/ML (10.0-20.0)
[2025-03-03] MEDS: VANCOMYCIN HCL 1,000 MG, VIAL MATE ADAPTER 1 EACH in NS 250 ML IV ONE (11:37)
[2025-03-03 11:51] VITALS: BP 110/60; TEMP 97.6; O2SAT 92
[2025-03-03 12:26] LABS: ALT/SGPT 59 U/L (7.0-40); AST/SGOT 113 U/L (<34); C REACTIVE PROTEIN QUANTITATIV 26.76 MG/DL (<1.0); CALCIUM LEVEL 7.5 MG/DL (8.5-10.1); CARBON DIOXIDE LEVEL 25 MMOL/L (20-31); CHLORIDE LEVEL 106 MMOL/L (98-107); CPK CREATINE PHOSPHOKINASE 1555 U/L (34-145); CREATININE FOR GFR 0.60 MG/DL (0.55-1.30); GLOMERULAR FILTRATION RATE > 90.0 (>58); POTASSIUM SERUM 3.5 MMOL/L (3.5-5.1); SODIUM LEVEL 139 MMOL/L (136-145)
[2025-03-03 16:22] VITALS: BP 116/59; TEMP 98.1; O2SAT 92
[2025-03-03] MEDS: VANCOMYCIN HCL 1,000 MG, VIAL MATE ADAPTER 1 EACH in NS 250 ML IV SCH (17:44)
[2025-03-03] MEDS: NICOTINE 14 MG/24 HR TRANSDERMAL TD SCH (17:45)
[2025-03-03 19:45] VITALS: BP 109/53; TEMP 98.6; O2SAT 96
[2025-03-03] MEDS: NS (Normal Saline) 0.9% 1,000 ML IV SCH (22:34)
[2025-03-03 23:44] VITALS: BP 112/57; TEMP 98.4; O2SAT 93
[2025-03-04] VITALS (7 sets, daily range): BP systolic 108–190; BP diastolic 58–74; TEMP 97–98.1; O2SAT 91–98
[2025-03-04 08:35] LABS: VANCOMYCIN LEVEL TROUGH 10.7 UG/ML (10.0-20.0)
[2025-03-04 08:39] LABS: ALT/SGPT 51 U/L (7.0-40); AST/SGOT 65 U/L (<34); CALCIUM LEVEL 7.5 MG/DL (8.5-10.1); CARBON DIOXIDE LEVEL 20 MMOL/L (20-31); CHLORIDE LEVEL 108 MMOL/L (98-107); CREATININE FOR GFR 0.55 MG/DL (0.55-1.30); GLOMERULAR FILTRATION RATE > 90.0 (>58); POTASSIUM SERUM 3.1 MMOL/L (3.5-5.1); SODIUM LEVEL 139 MMOL/L (136-145)
[2025-03-04 08:52] LABS: C REACTIVE PROTEIN QUANTITATIV 21.97 MG/DL (<1.0)
[2025-03-04] MEDS: POTASSIUM CHLORIDE 10MEQ SR TABLET PO ONE ×2 (09:11→18:48)
[2025-03-04 09:44] LABS: MAGNESIUM LEVEL 1.7 MG/DL (1.8-2.4)
[2025-03-04 09:48] LABS: CPK CREATINE PHOSPHOKINASE 550 U/L (34-145)
[2025-03-04 14:09] LABS: PLATELET COUNT, AUTOMATED 253 10^3/uL (150-450)
[2025-03-04] MEDS: PREGABALIN 25 MG CAP PO ONE (16:47)
[2025-03-04] MEDS: MAG SULF 1GM/100ML (MAG RUN) 1 GM in IV 1 EA IV ONE (16:47)
[2025-03-04] MEDS: cefTRIAXone SOD 2 GM in DEXTROSE 5% (D5W) ADV/MINI-BAG 50 ML IV SCH (20:25)
[2025-03-05 04:32] VITALS: BP 116/63; TEMP 97.2; O2SAT 96
[2025-03-05 06:29] LABS: ALT/SGPT 49 U/L (7.0-40); AST/SGOT 51 U/L (<34); CALCIUM LEVEL 7.5 MG/DL (8.5-10.1); CARBON DIOXIDE LEVEL 22 MMOL/L (20-31); CHLORIDE LEVEL 104 MMOL/L (98-107); CREATININE FOR GFR 0.50 MG/DL (0.55-1.30); GLOMERULAR FILTRATION RATE > 90.0 (>58); MAGNESIUM LEVEL 1.6 MG/DL (1.8-2.4); POTASSIUM SERUM 4.5 MMOL/L (3.5-5.1); SODIUM LEVEL 138 MMOL/L (136-145)
[2025-03-05 07:28] VITALS: BP 114/55; TEMP 98.1; O2SAT 91
[2025-03-05 08:45] LABS: BASO # 0.0 10^3/uL (0.0-0.2); BASO % 0.3 % (0.0-1.0); EOS # 0.3 10^3/uL (0.0-0.5); EOS % 2.7 % (0.0-3.0); LYMPH # 1.8 10^3/uL (1.5-5.0); LYMPH % 18.0 % (24.0-44.0); MONO # 1.2 10^3/uL (0.0-0.8); MONO % 12.0 % (2.0-8.0); NEUTROPHILS # 6.3 10^3/uL (1.5-8.5); NEUTROPHILS % 63.8 % (36.0-66.0); PLATELET COUNT, AUTOMATED 270 10^3/uL (150-450)
[2025-03-05 12:00] VITALS: BP 108/57; TEMP 98.1; O2SAT 92
[2025-03-05] MEDS: MELOXICAM 7.5 MG TAB PO ONE (12:55)
[2025-03-05 15:46] VITALS: BP 131/65; TEMP 98.4; O2SAT 92
[2025-03-05 19:37] VITALS: BP 116/57; TEMP 97.5; O2SAT 95
[2025-03-06 00:01] VITALS: BP 123/65; TEMP 97.8; O2SAT 93
[2025-03-06 04:16] VITALS: BP 114/64; TEMP 97; O2SAT 100
[2025-03-06 07:34] VITALS: BP 108/56; TEMP 96.8; O2SAT 100
[2025-03-06 07:57] LABS: PLATELET COUNT, AUTOMATED 334 10^3/uL (150-450)
[2025-03-06 08:17] LABS: ALT/SGPT 38 U/L (7.0-40); AST/SGOT 29 U/L (<34); CALCIUM LEVEL 7.8 MG/DL (8.5-10.1); CARBON DIOXIDE LEVEL 28 MMOL/L (20-31); CHLORIDE LEVEL 102 MMOL/L (98-107); CREATININE FOR GFR 0.50 MG/DL (0.55-1.30); GLOMERULAR FILTRATION RATE > 90.0 (>58); MAGNESIUM LEVEL 1.6 MG/DL (1.8-2.4); POTASSIUM SERUM 3.6 MMOL/L (3.5-5.1); SODIUM LEVEL 140 MMOL/L (136-145)
[2025-03-06 08:23] LABS: ATYPICAL LYMPH 1 % (0-5); EOSINOPHILS 2 % (0-3); LYMPHOCYTES 16 % (16-44); MONOCYTES 8 % (0-5); NEUTROPHILS 71 % (28-66)
[2025-03-06 08:24] LABS: PLATELET CLUMPS SMALL AMT; PLATELET ESTIMATE NORMAL (NORMAL)
[2025-03-06 08:43] LABS: C REACTIVE PROTEIN QUANTITATIV 13.43 MG/DL (<1.0)
[2025-03-06] MEDS: PREGABALIN 25 MG CAP PO ONE (13:03)
[2025-03-06] MEDS: POTASSIUM CHLORIDE 10MEQ SR TABLET PO ONE (14:17)
[2025-03-06] MEDS: MAG SULF 1GM/100ML (MAG RUN) 1 GM in IV 1 EA IV SCH (14:18)
[2025-03-06 16:00] VITALS: BP 108/55; TEMP 98.6; O2SAT 97
[2025-03-06 19:48] VITALS: BP 117/57; TEMP 98.2; O2SAT 96
[2025-03-07 04:43] VITALS: BP 114/60; TEMP 98; O2SAT 93
[2025-03-07 07:10] LABS: BASO # 0.1 10^3/uL (0.0-0.2); BASO % 0.5 % (0.0-1.0); EOS # 0.3 10^3/uL (0.0-0.5); EOS % 2.2 % (0.0-3.0); LYMPH # 2.8 10^3/uL (1.5-5.0); LYMPH % 22.5 % (24.0-44.0); MONO # 1.2 10^3/uL (0.0-0.8); MONO % 9.7 % (2.0-8.0); NEUTROPHILS # 7.0 10^3/uL (1.5-8.5); NEUTROPHILS % 55.9 % (36.0-66.0); PLATELET COUNT, AUTOMATED 421 10^3/uL (150-450)
[2025-03-07 07:37] LABS: ALT/SGPT 38 U/L (7.0-40); AST/SGOT 45 U/L (<34); CALCIUM LEVEL 7.8 MG/DL (8.5-10.1); CARBON DIOXIDE LEVEL 29 MMOL/L (20-31); CHLORIDE LEVEL 102 MMOL/L (98-107); CREATININE FOR GFR 0.50 MG/DL (0.55-1.30); GLOMERULAR FILTRATION RATE > 90.0 (>58); MAGNESIUM LEVEL 2.0 MG/DL (1.8-2.4); POTASSIUM SERUM 5.4 MMOL/L (3.5-5.1); SODIUM LEVEL 142 MMOL/L (136-145)
[2025-03-07] MEDS ORDERED: CEFD300CAP PO (10:48)
[2025-03-07] MEDS: FUROSEMIDE 20 MG/2 ML VIAL IV ONE (11:37)
== END 2025-03-07 14:10 | disposition home or self-care (01) | DRG 720 ==
LOC: M ED 11:42 → EDBD 11:42 → M ED INP 15:29 → M PCU 21:47 → M MS5PR 03-06 15:53
PROVIDERS: ADMIT Internal Medicine; ATTEND Internal Medicine
DX: A41.9 Sepsis, unspecified organism (principal); G93.41 Metabolic encephalopathy; N17.9 Acute kidney failure, unspecified; M62.82 Rhabdomyolysis; K73.9 Chronic hepatitis, unspecified; E66.9 Obesity, unspecified; R74.01 Elevation of levels of liver transaminase levels; F39 Unspecified mood [affective] disorder; L03.115 Cellulitis of right lower limb; L03.116 Cellulitis of left lower limb; J98.11 Atelectasis; Z87.891 Personal history of nicotine dependence; Z79.899 Other long term (current) drug therapy; Z88.0 Allergy status to penicillin; Z88.2 Allergy status to sulfonamides; Z88.8 Allergy status to other drugs, medicaments and biological substances; R65.20 Severe sepsis without septic shock